=== PATIENT | female | born 1940 | race Caucasian/White ===

== ENCOUNTER → 2017-03-31 | Outpatient (CLI) | payer OTHER ==
[~2017-03-31] MED LIST: CARDIZEM CD240 MG PO; CIPRO500 MG PO; COUMADIN 3 MG TA3 M1 PO; COUMADIN 5 MG TA5 M1 PO; HYDROCHLOROTHIA25 M2 PO; LANTUS100 UNIT/M SUBQ; LIPITOR10 MG PO; METFORMIN HCL500 MG PO; NEURONTIN250 MG/5 M PO; NORCO 5-325 TA1 EACH PO; NOVOLOG100 UNIT/1 SUBQ; PRINIVIL20 M1 PO; TRIAMCINOLONE A80 G2 TOP; TYLENOL325 MG PO
== END ==
LOC: M.WC 01:52
DX: E11.622 Type 2 diabetes mellitus with other skin ulcer (principal); L97.211 Non-pressure chronic ulcer of right calf limited to breakdown of skin; E11.51 Type 2 diabetes mellitus with diabetic peripheral angiopathy without gangrene; E11.40 Type 2 diabetes mellitus with diabetic neuropathy, unspecified; I89.0 Lymphedema, not elsewhere classified; I10 Essential (primary) hypertension; I48.91 Unspecified atrial fibrillation; E78.00 Pure hypercholesterolemia, unspecified

== ENCOUNTER → 2017-05-05 | Outpatient (CLI) | payer OTHER | LOC: M.WC 09:53 | DX: E11.622 Type 2 diabetes mellitus with other skin ulcer (principal); L97.211 Non-pressure chronic ulcer of right calf limited to breakdown of skin; E11.40 Type 2 diabetes mellitus with diabetic neuropathy, unspecified; E11.51 Type 2 diabetes mellitus with diabetic peripheral angiopathy without gangrene; I10 Essential (primary) hypertension; I48.91 Unspecified atrial fibrillation; I89.0 Lymphedema, not elsewhere classified; E78.00 Pure hypercholesterolemia, unspecified; E66.9 Obesity, unspecified; Z68.43 Body mass index [BMI] 50.0-59.9, adult ==

== ENCOUNTER → 2017-06-02 | Outpatient (CLI) | payer OTHER | LOC: M.WC 02:54 | DX: E11.622 Type 2 diabetes mellitus with other skin ulcer (principal); L97.211 Non-pressure chronic ulcer of right calf limited to breakdown of skin; I89.0 Lymphedema, not elsewhere classified; I48.91 Unspecified atrial fibrillation; E78.00 Pure hypercholesterolemia, unspecified; I10 Essential (primary) hypertension; E11.51 Type 2 diabetes mellitus with diabetic peripheral angiopathy without gangrene; E11.40 Type 2 diabetes mellitus with diabetic neuropathy, unspecified; E66.9 Obesity, unspecified; Z68.43 Body mass index [BMI] 50.0-59.9, adult ==

== ENCOUNTER 2018-05-19 11:25 | Inpatient (IN) | payer OTHER, MEDICAID ==
[~2018-05-19] VITALS: Ht 165.1 cm; Wt 113.4 kg
[2018-05-19 11:29] VITALS: BP 177/81
[2018-05-19] MEDS ORDERED: ELIQUIS5 MG PO (12:05)
[2018-05-19] MEDS ORDERED: HUMALOG100 UNIT/1 SUBQ (12:07)
[2018-05-19] MEDS ORDERED: LISINOPRIL40 MG PO (12:08)
[2018-05-19] MEDS ORDERED: VIMPAT200 MG PO (12:08)
[2018-05-19 12:09] LABS: ABSOLUTE BASOPHILS 0.1 thou/uL (0.0-0.2); ABSOLUTE EOSINOPHILS 0.2 thou/uL (0.0-0.7); ABSOLUTE LYMPHOCYTES 1.6 thou/uL (0.8-5.3); ABSOLUTE MONOCYTES 0.6 thou/uL (0.0-1.2); ABSOLUTE NEUTROPHILS 5.8 thou/uL (1.6-8.1); BASOPHILS 0.8 %; HEMATOCRIT 42.3 % (37.0-47.0); HEMOGLOBIN 13.9 gm/dL (12.0-15.0); LYMPHOCYTES 19.4 %; MCH 28.3 pg (26.0-34.0); MCHC 32.9 g/dL (28.0-37.0); MCV 86.2 fL (80.0-100.0); MONOCYTES 7.1 %; MPV 7.8 fl. (7.2-11.1); NUCLEATED RBCS 0 /100WBC; PLATELET COUNT* 251 thou/uL (150-400); POLYS 70.7 %; RBC 4.91 mil/uL (4.20-5.00); RDW-CV 16.3 % (10.5-14.5); WBC 8.2 thou/uL (4.0-11.0)
[2018-05-19] MEDS ORDERED: COREG6.25 MG PO (12:09)
[2018-05-19] MEDS ORDERED: COLACE100 MG PO (12:12)
[2018-05-19] MEDS ORDERED: PEPCID20 MG PO (12:13)
[2018-05-19] MEDS ORDERED: KEPPRA1000 MG PO (12:13)
[2018-05-19] MEDS ORDERED: MIRALAX17 GM PO (12:13)
[2018-05-19] MEDS ORDERED: BISACODYL SUPP10 MG RECTAL (12:14)
[2018-05-19] MEDS ORDERED: MILK OF MA400 MG/5 M PO (12:14)
[2018-05-19 12:19] LABS: APTT 31.6 Seconds (25.0-31.3); INR 1.1; PROTIME 11.4 Seconds (9.20-11.50)
[2018-05-19 12:26] LABS: ANION GAP 7 mmol/L (7-16); BUN 24 mg/dL (7-18); CALCIUM 9.3 mg/dL (8.5-10.1); CHLORIDE 104 mmol/L (98-107); CO2 28 mmol/L (21-32); CREATININE 1.2 mg/dL (0.6-1.3); GLUCOSE 120 mg/dL (70-99); POTASSIUM 4.3 mmol/L (3.5-5.1); SODIUM 139 mmol/L (136-145); TROPONIN-I LEVEL <0.06 ng/mL (<0.06)
[2018-05-19 12:31] LABS: ALBUMIN 2.9 g/dL (3.4-5.0); ALKALINE PHOSPHATASE 119 U/L (46-116); NT-PRO BRAIN NAT PEPTIDE 640 pg/mL (<300); SGOT 29 U/L (15-37); SGPT 25 U/L (30-65); TOTAL BILIRUBIN 0.5 mg/dL (<0.1-1.0)
[2018-05-19 12:41] LABS: URINE BILIRUBIN NEGATIVE (Negative); URINE BLOOD 1+ (Negative); URINE CLARITY CLEAR; URINE COLOR YELLOW; URINE GLUCOSE-RANDOM NEGATIVE (Negative); URINE KETONES TRACE (Negative); URINE PROTEIN 1+ (Negative); URINE SPECIFIC GRAVITY >= 1.030 (1.005-1.030); URINE UROBILINOGEN 0.2 E.U./dl (0.2-1.0)
[2018-05-19 12:42] LABS: URINE LEUKOCYTES-REFLEX 2+ (Negative); URINE NITRITE-REFLEX POSITIVE (Negative)
[2018-05-19 12:52] LABS: BACTERIA-REFLEX >30 Many /HPF (None Seen); CASTS None Seen /LPF (None Seen); CRYSTALS None Seen /LPF (None Seen); MUCUS 4-6 Moderate strn/LPF (None Seen); SQUAMOUS 0-3 Few /LPF (0-3); URINE RBC 3-10 Few /HPF (0-2); URINE WBC-REFLEX >25 Many /HPF (0-5)
[2018-05-19 14:39] LABS: PCO2 47.4 mmHg (35.0-45.0); pH 7.313 (7.340-7.450)
[2018-05-19 14:42] VITALS: BP 137/53
[2018-05-19 14:42] LABS: PO2 145.6 mmHg (75.0-100.0)
[2018-05-19 15:07] VITALS: BP 161/72
--- NOTE | 2018-05-19 15:58 | NUR ---
PT ADMITTED AROUND 1430 PT IS LETARGIC SLEEPING MOANS WHEN MOVED PT UNAROUSABLE WHEN CALL NAME OR TALK TO PT, PT IS NON AMBULATORY PT HOB ELEVATED FOR ASPIRATION PRECAUTIONS PT HAS SEIZURE PRECAUTIONS IN PLACE D/T PT HISTORY, SPOKE WITH NURSE AT [facility] NURSE STATES PT BASELINE IS ALERT AND ORIENTED X 2 PT IS ALERT TO SELF COULD STATE DATE PT SLEPT ALL WEEKEND WAS ABLE TO WAKE UP WHEN NAME WAS SAID, THIS NURSE PAGED PHYSICIAN AWAITING CALL BACK OR NEW ORDERS, PT IS SR ON THE MONITOR, PT MEDICATIONS UPDATED, WILL CONTINUE TO MONITOR
--- NOTE | 2018-05-19 16:44 | EKG ---
[place] [address] ELECTROCARDIOGRAM REPORT Name: PAULETTENEDTHERESAALVARO JOHNSON Room: [address] ADM IN M.R.#: [id number] Admission: 05/19/18 Attend Phys: Dhiraj Richardson MD Discharge: Date of : 42 Report #: [id number] THIS REPORT FOR: //name// [facility] Test Date: 2018-05-19 Test Time: 11:46:04 Pat Name: THERESA CALDWELL Department: Room: [facility] Gender: F Labor Relations Manager: Rebel Michael : 1940 Requested By: Bebeto Rodriguez Order Number: [id number] MD: Tremayne Carter Measurements Intervals Marine Rate: 61 P: WV: QRS: -49 QRSD: 99 T: 57 QT: 436 QTc: 440 Interpretive Statements Atrial fibrillation Left anterior fascicular block Abnormal R-wave progression, late transition Compared to ECG 01/13/2017 16:05:24 Left anterior fascicular block now present Sinus rhythm no longer present Possible ischemia no longer present Electronically Signed On 05-19-2018 16:44:32 HYPERION ANALYST by Tremayne Carter [email or web address] <ELECTRONICALLY SIGNED> By: Tremayne Carter MD, [facility] 05/19/18 1644 1146 1146 Tremayne Carter MD, [facility] /EPI
[2018-05-19 20:00] VITALS: BP 148/59
[2018-05-20] VITALS: BP 121/28
[2018-05-20 00:05] VITALS: BP 140/45
[2018-05-20 04:00] VITALS: BP 132/54
[2018-05-20 04:50] LABS: HEMATOCRIT 36.6 % (37.0-47.0); MCH 28.1 pg (26.0-34.0); MCHC 32.6 g/dL (28.0-37.0); MCV 86.4 fL (80.0-100.0); MPV 7.7 fl. (7.2-11.1); RBC 4.23 mil/uL (4.20-5.00); RDW-CV 16.2 % (10.5-14.5)
[2018-05-20 05:01] LABS: HEMOGLOBIN 11.9 gm/dL (12.0-15.0)
[2018-05-20 05:03] LABS: ALBUMIN 2.3 g/dL (3.4-5.0); CALCIUM 8.7 mg/dL (8.5-10.1); CREATININE 1.1 mg/dL (0.6-1.3); MAGNESIUM 1.7 mg/dL (1.8-2.4); POTASSIUM 3.8 mmol/L (3.5-5.1); TOTAL BILIRUBIN 0.4 mg/dL (<0.1-1.0); TOTAL PROTEIN 7.2 g/dL (6.4-8.2)
--- NOTE | 2018-05-20 05:34 | NUR ---
PATIENT WAS LETARGIC AND DIFFICULT TO AROUSE, NOT ANSWER QUESTIONS AT START OF SHIFT. PATIENT BECAME EASIER TO AROUSE SHIFT PROGRESSED. BILATERAL BUTTOCK WOUNDS WHERE CLEANED WITH WOUND CLEANSERS AND SALINE. WOUNDS WAS THEN PAT DRY AND BOARDER FOAM WAS PLACED. FALL PRECAUTIONS IN PLACE, BED ALARM ON, CALL LIGHT WITHIN REACH, HOURLY ROUNDING BOSERVED.
[2018-05-20 06:24] LABS: BE 1.5 mmol/L (-2 to +3); PO2 72.6 mmHg (75.0-100.0); pH 7.353 (7.340-7.450)
[2018-05-20 06:26] LABS: PCO2 51.3 mmHg (35.0-45.0)
[2018-05-20 08:00] VITALS: BP 168/90
--- NOTE | 2018-05-20 12:25 | NUR ---
assumed pt care report received from nurse. pt is aox2 afib rate controlled on secured entrance monitor. on RA and saturation is 94%. accucheck 91. no insulin given. no complaint of pain. zarate in place. pt out of bed to chair with PT. now eating lunch. poor appetite. Nurse encourages pt to eat. PT/OT? wound care consulted. wound dressing intact. will change as needed later today. manager assisted living saw pt in room. pt compliant with medication administration. boots on. and elevated lower extremities. will continue to monitor pt.
--- NOTE | 2018-05-20 15:28 | NUR ---
Pt asleep when CM went to assess, will f/u later
[2018-05-20 16:00] VITALS: BP 111/60
--- NOTE | 2018-05-20 17:59 | NUR ---
PT INCONTENENT OF BOWEL. BED CHANGES. PERICARE GIVEN. BARRIER CREAM APPLIED ON BUTTOCKS. NEW DRESSING APPLIED ON WOUND IN BUTTOCKS. FLOEY IN PLACE. PT ATE 1/3 OF DINNER NO INSULIN GIVEN BLOOD SUGAR IS 110. ROCEPHIN GIVNE ORDERED. WILL CONTINUE TO MONITOR
[2018-05-20 20:00] VITALS: BP 142/49
[2018-05-21] VITALS: BP 131/62
[2018-05-21 04:00] VITALS: BP 144/66
[2018-05-21 04:27] LABS: HEMATOCRIT 35.8 % (37.0-47.0); HEMOGLOBIN 11.4 gm/dL (12.0-15.0); MCH 27.6 pg (26.0-34.0); MCHC 31.8 g/dL (28.0-37.0); MCV 86.6 fL (80.0-100.0); MPV 7.7 fl. (7.2-11.1); RBC 4.13 mil/uL (4.20-5.00); RDW-CV 16.5 % (10.5-14.5); WBC 5.9 thou/uL (4.0-11.0)
[2018-05-21 04:35] LABS: CALCIUM 8.8 mg/dL (8.5-10.1); MAGNESIUM 1.8 mg/dL (1.8-2.4); POTASSIUM 3.7 mmol/L (3.5-5.1)
--- NOTE | 2018-05-21 05:19 | NUR ---
PATIENT RESTED IN BED. WOUNDS ON BUTTOCK CLEANED WITH WOUND CLEASER AND SALINE, WOUNDS WERE PAT DRY. BOARDER FOAM DRESSING WAS THEN PLACED ON BILATERAL BUTTOCKS. PATIENT IS DIFFICULT TO AROSE. CALL TO DOCTOR MCT REGARDING BIPAP SETTINGS, SEE ORDERS.
[2018-05-21 08:00] VITALS: BP 151/68
[2018-05-21 12:00] VITALS: BP 116/80
--- NOTE | 2018-05-21 13:37 | CON ---
[address] [address] CONSULTATION Name: THERESA CALDWELL Room: [address] ADM IN M.R.#: [id number] Admission: 05/19/18 Attend Phys: Dhiraj Richardson MD Discharge: Date of : 42 Report #: [id number] THIS REPORT FOR: //name// CC: Dhiraj Shoemaker MD DATE OF SERVICE: 05/20/2018 ATTENDING PHYSICIAN: Dhiraj Richardson MD. PRIMARY CARE PHYSICIAN: Martin Shoemaker MD. LOCATION: The patient is located in room 203. INDICATION FOR CONSULTATION: Mild CO2 retention, altered mental status. CLINICAL SUMMARY: The patient is a 78-year-old female, prior nonsmoker with multiple medical problems including dementia, atrial fibrillation. She is admitted to [facility] for urinary tract infection and urosepsis. The patient presented to the Emergency Department yesterday afternoon after being 24-48 hours less responsive at the facility. She had foul smelling urine and she also had some necrotic pressure ulcers on both buttocks. She also had some crampy abdominal pain without diarrhea. She had some mild vomiting. She was just on 2 liters and her pO2 was 140s, her pCO2 was 50 and her pH was balanced. She has mild renal insufficiency. Urine culture was obtained. She was started on antibiotics. She states she is more alert today, question whether she had a couple of extra pain pills or sleeping pills yesterday afternoon or evening. PAST MEDICAL HISTORY: Frequent urinary tract infections, urosepsis, type 2 diabetes mellitus with diabetic ulcer right lower leg, pressure necrosis ulcers of both buttocks, nonhealing ulcers of the lower extremities, metabolic encephalopathy and renal insufficiency. ALLERGIES: SHE HAS ALLERGIES OR INTOLERANCES TO PENICILLIN AND SULFA, BOTH OF WHICH GIVE HER NAUSEA. PAST MEDICAL ILLNESSES: Include again dementia, atrial fibrillation, chronic urinary tract infections, possible obstructive sleep apnea or hypoventilation, mild CO2 retention. OTHER MEDICATIONS: Include lisinopril 20 mg daily, atorvastatin 10 mg daily, sliding scale insulin, Apixaban 5 mg b.i.d. for atrial fibrillation, Vimpat 200 mg b.i.d. previously for seizures, carvedilol 6.25 mg b.i.d., famotidine 20 mg p.o. b.i.d. and MiraLax p.r.n. She is also on Keppra 1000 [place] [address] CONSULTATION Name: THERESA CALDWELL Room: [address] IN [facility].#: [id number] Admission: 05/19/18 Attend Phys: Dhiraj Richardson MD Discharge: Date of : 41 Report #: [id number] cannot find an antibiotic ordered at this time. FAMILY HISTORY: Negative for premature cardiopulmonary disease. SOCIAL HISTORY: The patient states she is . She is a former smoker. She quit more 10-15 years ago. Again, history is somewhat sketchy and back and forth at times. Also, questionable history of lupus in the past. Denies any alcohol or illicit drug use. REVIEW OF SYSTEMS: A 14-point review of systems was attempted and appeared to be negative except for pertinent positives. PHYSICAL EXAMINATION: GENERAL: This is a 78-year-old female who is oriented to person, not to place or time when I asked her. She is on room air. Occasionally, she picks at her dressing gown. VITAL SIGNS: Blood pressure is 168/90, heart rate is 84 and slightly irregular, respirations are 16 and she is afebrile at this time. Temperature is 36.6. She is 5 feet 3 inches tall, weight is 117 kilograms or 250 pounds, BMI is 43. HEENT: Unremarkable. Mucous membranes are slightly dry. Pharynx is crowded. NECK: Supple without nodes. CHEST: Shows diminished breath sounds, otherwise clear. CARDIOVASCULAR: Irregular rate and rhythm with ventricular response in the 80s. No S3 is noted. ABDOMEN: Soft, obese without masses or megaly. EXTREMITIES: She has chronic venous stasis changes and Unna boots on. Nonhealing ulcers of both lower extremities. LABORATORY DATA: From 05/20/2018 today; hemoglobin is 12, white count is 8000, platelet counts 202,000. Sodium is 143, potassium is 3.8, chloride is 109, BUN is 22, creatinine is 1.0, GFR is 48, glucose is 122, magnesium is 1.7. Albumin is 2.3. ABG initially yesterday afternoon on 2 liters in the Emergency Room showed pO2 of 145, pH of 7.31, pCO2 is 47 with bicarb of 23. This morning at 6:00, not sure whether she was awake or sedated, pO2 was 73, pH 7.35, pCO2 is 51 with bicarbonate of 28. Her A-a gradient is probably less than 10. Chest x-ray basically is within normal limits without any infiltrates or pneumonia or CHF. IMPRESSION: 1. Mild acute hypercarbic respiratory failure, acute respiratory failure, probably multifactorial. 2. Probable obstructive sleep apnea. 3. Dementia. 4. Atrial fibrillation. 5. Possible urinary tract infection. PLAN: We will basically just hold sedation, see that she needs some [facility] [address] [place] [address] CONSULTATION Name: THERESA CALDWELL Room: [address] IN ..#: [id number] Admission: 05/19/18 Attend Phys: Dhiraj Richardson MD Discharge: Date of : 42 Report #: [id number] antibiotics, continue on her anti-seizure medications. We could recheck her blood gas at some point in time to make sure CO2 is stable. Right now, she is a full code blue and need to talk about code and ventilatory status. Would avoid sleeping pills in this patient. I think she would cooperate for sleep study in the future, might be a consideration at some point in time. Thanks again for allowing us to participate in this lady's care. We will follow up along with you while she is in the hospital at this time. <ELECTRONICALLY SIGNED> By: Dejuan Yung MD 05/21/18 1337 1254 [id number] Yung MD /nt
--- NOTE | 2018-05-21 14:32 | NUR ---
WOUND CARE NOTE: CONSULT RECEIVED FOR BUTTOCKS WOUNDS. PATIENT'S FAMILY MEMBER IN ROOM, STATES SHE HAS BEEN FIGHTING THESE WOUNDS FOR APPROXIMATELY 1 MONTH. RIGHT BUTTOCK: UNSTAGEABLE PRESSURE ULCER MEASURING 1.7X2.5X0.2. MOIST, YELLOW WOUND BED. [place]-WOUND REDDENED, BLANCHABLE. CLEANSED WITH WOUND CLEANSER, PATTED DRY. APPLIED AQUACEL AG TO WOUND BED AND COVERED WITH EXUDERM THEN TEGADERM. LEFT BUTTOCK: UNSTAGEABLE PRESSURE ULCER MEASURING 1.5X2X0.2. MOIST, YELLOW ADHERENT SLOUGH TISSUE TO 90% OF WOUND BED. 10% PINK, MOIST NON-GRANULAR. CLEANSED WITH WOUND CLEANSER, PATTED DRY. APPLIED AQUACEL AG TO WOUND BED AND COVERED WITH EXUDERM THEN TEGADERM. PATIENT TOLERATED DRESSING CHANGE WELL. EDUCATED FAMILY MEMBER ON FINDINGS, COMMUNICATED UNDERSTANDING. EDUCATED FAMILY MEMBER ON DRESSING SELECTION AND TURNING TO OFFLOAD PRESSURE, COMMUNICATED UNDERSTANDING. RECOMMEND TURN Q2 HOURS-KEEP OFF WOUNDS WAFFLE CUSHION WHEN IN CHAIR IBRAHIMA MATTRESS ENCOURAGE GOOD NUTRTION/HYDRATION LIMIT HOB <30 DEGREES FOLLOW UP IN WOUND CENTER UPON DISCHARGE
[2018-05-21 15:46] VITALS: BP 134/68
--- NOTE | 2018-05-21 15:51 | NUR ---
ASSUMED CARE OF PATIENT THIS AM AT 0730. PATIENT IS DROWSY SLEEPY MOST OF THE DAY. TELE SHOWS A FIB. PATIENT'S APPETITE IS POOR. GIVEN ENSURE OFF AND ON TODAY. PATIENT UP IN THE CHAIR WITH MAYITO LIFT THIS AFTERNOON WITH PTDaphne SALAS REMAINS TO DD. WILL CONTINUE TO MONITOR MENTAL STATUS. NO FALLS OR INJURY.
--- NOTE | 2018-05-21 15:52 | NUR ---
Spoke with Pt's via phone. Pt admitted to [facility] a little over a month ago with a stroke, Pt was there for 29 days. At tx, Pt discharged to [facility], per , Pt had been there for 5.5 days prior to admitting to this hospital. Prior, Pt resided at home with her and was fairly independent, assisted with some ADLS and completed all IADLs. Pt has a walker, quad cane, wc and lift chair at home. Hx of [facility]. Hx of SNF at [facility]. 's goal is for Pt to return home at dc, does not want Pt to return to [facility]. CM discussed inhome caregivers through pt's Medicaid, discussed process to get services started. Plan dc home with HH and plan to set up [facility], if Pt qualifies. Following.
[2018-05-21 20:00] VITALS: BP 153/63
[2018-05-22] VITALS: BP 113/74
--- NOTE | 2018-05-22 03:48 | NUR ---
RECIEVED REPORT AND ASSUMED CARE AT 1900. TOOL CHASER IN PLACE. SYSTOLIC BP ELEVATED, OTHER THAN THAT VITAL SIGNS STABLE. PT DENIES ANY PAIN AT THIS TIME AND DOESN'T APPEAR TO HAVE PAIN AT THIS TIME. ASSESSMENT COMPLETED DISCUSSED PLAN OF CARE. BED LOCKED, AND CALL LIGHT WITHIN REACH. FALL PRECAUTIONS IN PLACE. HOURLY ROUNDING DONE AND ALL NEEDS MET. NURSING WILL CONTINUE TO MONITOR.
[2018-05-22 04:00] VITALS: BP 140/48
[2018-05-22 05:23] LABS: ABSOLUTE BASOPHILS 0.1 thou/uL (0.0-0.2); ABSOLUTE EOSINOPHILS 0.3 thou/uL (0.0-0.7); ABSOLUTE LYMPHOCYTES 1.4 thou/uL (0.8-5.3); ABSOLUTE MONOCYTES 0.9 thou/uL (0.0-1.2); ABSOLUTE NEUTROPHILS 3.7 thou/uL (1.6-8.1); BASOPHILS 0.8 %; HEMATOCRIT 36.7 % (37.0-47.0); HEMOGLOBIN 11.6 gm/dL (12.0-15.0); LYMPHOCYTES 21.5 %; MCH 27.5 pg (26.0-34.0); MCHC 31.7 g/dL (28.0-37.0); MCV 86.7 fL (80.0-100.0); MONOCYTES 14.7 %; MPV 8.4 fl. (7.2-11.1); NUCLEATED RBCS 0 /100WBC; PLATELET COUNT* 146 thou/uL (150-400); RBC 4.23 mil/uL (4.20-5.00); RDW-CV 16.2 % (10.5-14.5); WBC 6.3 thou/uL (4.0-11.0)
[2018-05-22 05:57] LABS: ALBUMIN 2.2 g/dL (3.4-5.0); CALCIUM 8.7 mg/dL (8.5-10.1); CREATININE 1.1 mg/dL (0.6-1.3); POTASSIUM 3.9 mmol/L (3.5-5.1); TOTAL BILIRUBIN 0.2 mg/dL (<0.1-1.0)
[2018-05-22 08:00] VITALS: BP 146/44
[2018-05-22 11:31] VITALS: BP 158/67
[2018-05-22 15:40] VITALS: BP 129/62
--- NOTE | 2018-05-22 17:13 | NUR ---
PT RESTING IN BED THROUGHOUT SHIFT. REPOSITIONED FREQUENTLY. PLEASANTLY CONFUSED. SALAS CATH DRAINING CLEAR YELLOW URINE. INCONTINENT OF STOOL. TOLERATING PO WELL. GOOD APPETITE. AT BS AND UPDATED ON PLAN OF CARE
[2018-05-22 20:00] VITALS: BP 144/67
[2018-05-23] VITALS: BP 141/58
--- NOTE | 2018-05-23 03:30 | NUR ---
RECIEVED REPORT AND ASSUMED CARE AT 1900. PROCEDURE WRITER IN PLACE. VITAL SIGNS ARE STABLE. PT DOESN'T APPEAR TO BE IN ANY PAIN NOR COMPLAINS OF PAIN AT THIS TIME. ASSESSMENT COMPLETED AND REVIEWED PLAN OF CARE. BED LOCKED, ALARM ON AND CALL LIGHT WITHING REACH. FALL PRECAUTIONS IN PLACE. PT ON BIPAP AT HS AND RA DURING THE DAY. HOURLY ROUNDING DONE AND ALL NEEDS MET. NURSING WILL CONTINUE TO MONITOR.
[2018-05-23 04:00] VITALS: BP 127/64
[2018-05-23 08:00] VITALS: BP 133/87
[2018-05-23 11:30] VITALS: BP 151/46
[2018-05-23 15:26] VITALS: BP 141/64
--- NOTE | 2018-05-23 17:15 | NUR ---
PT RESTING IN BED THROUGHOUT SHIFT. REPOSITIONED FREQUENTLY. PT CONFUSED. AT BS AND UPDATED ON PLAN OF CARE. TOLERATING PO WELL.
[2018-05-23 20:00] VITALS: BP 161/80
[2018-05-24] VITALS: BP 146/65
--- NOTE | 2018-05-24 02:48 | NUR ---
RECIEVED REPORT AND ASSUMED CARE AT 1900. PUBLICITY CONSULTANT IN PLACE AT BEGINING OF SHIFT AND PT WAS PULLING AT IT AND PULLED IT OFF IN THE MIDDLE OF MY SHIFT AND WOULD NOT LET STAFF PUT BACK ON. AFTER FEW HOURS STAFF WAS ABLE TO PUT PUBLICITY CONSULTANT BACK ON. NOTIFIED DR ABOUT PTS AGITATION, PT BEING PARANOID AND NOT TRUSTING STAFF, AND ABOUT SEEING PEOPLE AND TALKING TO PEOPLE THAT WERE NOT IN ROOM. PT PULLED OUT IV ON DAY SHIFT AND HAS NOT LET ANYONE PUT ANOTHER IV BACK IN. PT REFUSED ALL NIGHT TIME MEDS AND I WAS TRYING TO GIVE HER AN ENSURE AND SHE SQUEEZED HARD ENOUGH TO POP A HOLE IN IT AND ENSURE WENT EVERYWHERE. SHE HAS BE NONCOMPLAINT MOST OF THE NIGHT. I ALSO NOTIFIED DR HAND TUFTER ABOUT THAT. SYSTOLIC BP ELEVATED, OTHER THAN THAT VITAL SIGNS STABLE. PT IS UP WITH MAYITO LIFT TO THE CHAIR AND BED. ASSESSMENT COMPLETED. BED LOCKED, ALARM ON AND CALL LIGHT WITHIN REACH. FALL PRECAUTIONS IN PLACE. HOURLY ROUNDING DONE AND ALL NEEDS MET. NURSING WILL CONTINUE TO MONITOR.
[2018-05-24 05:02] LABS: ABSOLUTE EOSINOPHILS 0.4 thou/uL (0.0-0.7); ABSOLUTE LYMPHOCYTES 1.4 thou/uL (0.8-5.3); ABSOLUTE MONOCYTES 0.7 thou/uL (0.0-1.2); ABSOLUTE NEUTROPHILS 2.7 thou/uL (1.6-8.1); BASOPHILS 0.7 %; EOSINOPHILS 7.5 %; HEMATOCRIT 37.9 % (37.0-47.0); HEMOGLOBIN 12.4 gm/dL (12.0-15.0); LYMPHOCYTES 26.7 %; MCH 27.9 pg (26.0-34.0); MCHC 32.6 g/dL (28.0-37.0); MCV 85.6 fL (80.0-100.0); MONOCYTES 13.4 %; MPV 8.3 fl. (7.2-11.1); NUCLEATED RBCS 0 /100WBC; PLATELET COUNT* 174 thou/uL (150-400); POLYS 51.7 %; RBC 4.42 mil/uL (4.20-5.00); RDW-CV 16.4 % (10.5-14.5); WBC 5.3 thou/uL (4.0-11.0)
[2018-05-24 05:12] LABS: CALCIUM 8.7 mg/dL (8.5-10.1); POTASSIUM 3.5 mmol/L (3.5-5.1)
--- NOTE | 2018-05-24 06:57 | NUR ---
PT LET STAFF PUT HEART MONITOR BACK ON DURING THE NIGHT. BUT THEN TOOK IT OFF AGAIN ALONG WITH HER GOWN. STAFF CHANGED PTS BEDDING AND REDRESSED HER AND PUT HEART MONITOR ON BACK SIDE. PTS A LITTLE LOW SO STAFF GAVE PT ENSURE TO HELP BRING BS UP. PT NOW RESTING IN BED.
[2018-05-24 08:32] VITALS: BP 159/96
--- NOTE | 2018-05-24 11:28 | NUR ---
PT A/O TO SELF ONLY. PT VERY PARANOID THIS AM, SPEAKING ABOUT PEOPLE/EVENTS THAT ARE NOT AROUND/HAPPENING. PT IS NOT EASILY REORIENTED.-MD AWARE. DENIES CP. SOA. INCONT OF BM THIS AM. BILAT BUTTOCK DRESSING INTACT. Q2 TURN, SPECIALTY MATTRESS. SALAS TO DD WITH ADEQUATE UO- DC PER VERBAL ORDER. PT DOES NOT HAVE PIV- MD AWARE AND OK TO CONTINUE WITHOUT ACCESS AT THIS TIME. EDUCATED ON SAFETY AND PLAN OF CARE. BED ALARM ON, CALL LIGHT IN REACH. PLEASE SEE ASSESSMENT FOR ADDITIONAL INFORMATION. WILL CONTINUE TO MONITOR.
[2018-05-24 12:00] VITALS: BP 156/59
--- NOTE | 2018-05-24 12:46 | NUR ---
Nutrition: Pt assessed for high BMI. Admitted with urosepsis. H/o DM, OBE, HTN. Physician indicated moderate PCM - defer DX. Alb 2.2, prealb 14.6. CHO controlled diet. BG 67-140. Takes insulin, carvedilol. Wt: 255#. Consider Mild risk at this time.
--- NOTE | 2018-05-24 14:56 | NUR ---
WOUND NURSE: PATIENT SEEN TO REVISIT BUTTOCK WOUNDS: RIGHT SACRUM: 1.5 X 2.5 X 0.2 CM; PINK GRANULATION TISSUE IN THE WOUND BED, MODERATE AMOUNT OF SEROUS DRAINAGE. LEFT SACRUM: 1.3 X 2.5 CM WITH UNSTABLE BLACKENED ESCHAR COVERING THE WOUND, MODERATE AMOUNT OF SEROUSANGUINOUS DRAINAGE NOTED. WOUNDS WERE CLEANSED WITH SOAP AND WATER, RINSED WITH WATER, THEN PATTED DRY. APPLIED SKIN PREP TO INTACT PERIWOUND TISSUE, APPLIED AQAUCEL AG UNDER EXUDERM TO EACH WOUND BED, THEN SECURED IN PLACE. INTACT DRY SCAB ON RIGHT GREAT TOE: 1.2 X 1.5CM; RIGHT LATERAL DISTAL LE.0 X1.5 CM. THESE WERE SWABBED WITH BETADINE SWAB, LET DRY, THEN REAPPLIED HEELMEDIX BOOT.
[2018-05-24 16:00] VITALS: BP 129/55
[2018-05-24 20:00] VITALS: BP 138/65
[2018-05-25] VITALS: BP 106/48
--- NOTE | 2018-05-25 01:19 | NUR ---
PT ALERT, CONFUSED, COOPERATIVE. TURNING Q 2 HRS. INCONTENENT OF URINE. DENIES PAIN. TELEMETRY SHOWS AFIB. WOUNDS ON ROSARIO BUTTOCKS WITH DRSG INTACT.
[2018-05-25 04:00] VITALS: BP 132/68
[2018-05-25 09:30] VITALS: BP 139/70
--- NOTE | 2018-05-25 11:04 | NUR ---
CM spoke with Pt's in room, is adament that he wants to take Pt home at nd. CM discussed option of utilizing a different skilled facility, instead of [facility], continued to say no. CM asked to contact [facility] in home care, to complete an over the phone assessment to determine if Pt will qualify for in home care providers, through her [place] [facility], to call this afternoon. also wants to use [facility] for nursing, PT/OT, CM to ask [facility] to review Pt's chart to determine if they will be able to accept Pt at nd. Per , if Pt needs a dev lift, they do not currently have one at home, CM will obtain an order if dev is needed. stated that Pt normally sleeps in her lift chair, and anticipates that she will do the same at nd. Following.
[2018-05-25 11:13] VITALS: BP 152/71
[2018-05-25 15:06] LABS: COMPLEMENT-C4 42 mg/dL (14-44)
[2018-05-25 15:48] VITALS: BP 132/59
--- NOTE | 2018-05-25 16:49 | NUR ---
ASSUMED PT CARE AT 0700 PT SHOWS NO SIGNS OF PAIN, PT SHOWS NO SIGNS OF SOA ON RA, PT IS ON AIR MATTRESS REFUSED Q 2 TURNS, PT TRANSFERS WITH MAYITO LIFT, PT IS AFIB ON THE MONITOR, OBTAINED ORDERS FOR DR OLSEN WITH SURGERY TO PERFORM BEDSIDE RIGHT BUTTOCK DEBRIDEMENT 05-26-18 AROUND 7401-9839 OBTAINED ORDERS FOR LIDOCAINE AND SILVER NITRATE PHYSICIAN ORDER TO DRESS BOTH BUTTOCK USING SAME ORDERS OF AQUALCEL EXODERM AND TAGADERM PT TO GIVE CONSENT PT IS ALERT AND ORIENTED X 2 PT IS CONFUSED, PT IS PROGRESSING TOWARDS GOALS WILL CONTINUE TO MONITOR
[2018-05-25 20:00] VITALS: BP 153/43
[2018-05-26] VITALS: BP 149/53
--- NOTE | 2018-05-26 00:11 | NUR ---
PT ALERT, CONFUSED, HALLUCINATING, UNCOOPERATIVE. TELEMETRY SHOWS AFIB. BEDREST Q 2 HR TURN. INCONT OF URINE. DENIES PAIN.
[2018-05-26 04:00] VITALS: BP 144/54
--- NOTE | 2018-05-26 05:08 | NUR ---
PT REFUSED TO TAKE ALL OF HER MEDICATIONS LAST NIGHT. HELD IN MOUTH UNTIL DISOLVED. SPIT DISOLVED PILLS OUT ON STAFF WHEN GIVEN WATER TO DRINK. UNABL TO TELL WHICH PILLS WERE SWALLOWED AND SPIT DISOLVED IN WATER.
[2018-05-26 09:00] VITALS: BP 126/50
[2018-05-26 11:26] VITALS: BP 158/76
--- NOTE | 2018-05-26 11:31 | NUR ---
updated CM that Pt does not have the right [place] [facility]DA to qualify for inhome care services. continues to plan for Pt to return home with his with [facility]. Initial referral sent to [facility], they are able to accept [place] at [place].
--- NOTE | 2018-05-26 11:35 | CON ---
[address] [address] CONSULTATION Name: THERESA CALDWELL Room: [address] IN M.R.#: [id number] Admission: 05/19/18 Attend Phys: Dhiraj Richardson MD Discharge: Date of : 42 Report #: [id number] THIS REPORT FOR: //name// CC: Dhiraj Shoemaker DATE OF SERVICE: 05/25/2018 INFECTIOUS DISEASE CONSULTATION ATTENDING PHYSICIAN: Stanford Díaz M.D. REASON FOR EVALUATION: Recent sepsis, now with complicated urinary tract infection, has been complicated by encephalopathy including apparently recent seizures as well as hallucinations. HISTORY OF PRESENT ILLNESS: Chart reviewed, patient examined. This is a 78-year-old woman with extensive medical history, underlying chronic obstructive pulmonary disease, has had multiple hospital stays, recently she was admitted through the Emergency Room on 05/19/2018 here with profound encephalopathy. Urinalysis was markedly abnormal, greater than 25 white cells and greater than 30 bacteria. Urine culture with growth of Escherichia coli that was generally susceptible. Initial treatment was utilized with ceftriaxone. She was switched to Ceftin. She continues to have fairly profound hallucinations. On review of her recent history, she was hospitalized with septic shock, spent close to a month in the hospital, ____ in the ICU, was on chronic ventilatory support. She was eventually weaned. She has been utilizing BiPAP while here until recently. Due to concerns of fact that she had some seizures that had been new onset, did undergo lumbar puncture, apparently shows some pleocytosis that was felt not to be secondary to any sort of inflammation and/or FRENCH COMBER infection. She generally has improved, although she is profoundly weak. She does have decubitus ulcers apparently related to the recent hospitalization, subsequent time spent at the rehab facility, which she was just prior to this admission. She denies any headache, stiff neck. On questioning she has some discomfort in her chest and does have a cough which is somewhat wet and significant abdominal-related complaints. ALLERGIES: PENICILLIN AND SULFA. CURRENT MEDICATIONS: Include cefuroxime, bisacodyl, docusate sodium, levetiracetam, famotidine, lacosamide, apixaban, insulin, atorvastatin, carvedilol, insulin, lisinopril, melatonin, montelukast. PAST MEDICAL HISTORY: History of hypertension, diabetes mellitus, atrial fibrillation, factor V Leiden, lupus anticoagulant, positive chronic anticoagulation, elevated cholesterol, venous [place] [address] CONSULTATION Name: THERESA CALDWELL Room: [address] IN [facility]#: [id number] Admission: 05/19/18 Attend Phys: Dhiraj Richardson MD Discharge: Date of : 42 Report #: [id number] dermatitis, history of diverticulosis, peripheral neuropathy, psoriasis, obesity. SOCIAL HISTORY: Former smoker. No ethanol or illicit drug use. FAMILY HISTORY: Noncontributory. REVIEW OF SYSTEMS: Ten-point review of systems otherwise unremarkable except as noted in the above history of present illness. PHYSICAL EXAMINATION: GENERAL: She appears chronically ill, undernourished. She is generally pleasant and cooperative. It is clear that she is hallucinating at times, seeing people in the room, things happening with the TV. Per family, this is something that happened previously post sepsis, it eventually cleared. VITAL SIGNS: Temperature 97.8, pulse 78, respirations 17, blood pressure 152/71. HEENT: Extraocular muscles intact. Normocephalic. NECK: Supple. LUNGS: Diminished breath sounds. Few scattered crackles. HEART: Distant, regular. I do not appreciate murmur. ABDOMEN: Obese, soft. There are no peritoneal signs. Nontender. GENITOURINARY AND RECTAL: Deferred. SKIN: Venous stasis dermatitis of the lower extremities with some swelling. LABORATORY DATA: Sed rate of 69. CRP of 53.7. Blood cultures sterile thus far. Most recent electrolytes: Sodium 141, potassium 3.5, chloride 102, bicarbonate is 34, anion gap of 5, BUN and creatinine 17 and 1.0, glucose of 67, calcium of 8.7, estimated GFR of 5.4. CBC: White count of 5.3, H and H 12.4 and 37.9, platelets of 174. Differential showed absolute lymphocyte count of 1400. Urine culture with Escherichia coli. Liver function tests were otherwise unremarkable. Albumin 2.2, total protein 7.0. ASSESSMENT AND PLAN: Complicated urinary tract infection, although it is pretty susceptible organism, although had a previous 1-2 months extensive illness with a prolonged ICU stay. I am not sure I can appreciate anything that would lead me to believe has an ongoing FRENCH COMBER infection at this point. We will discuss with Dr. Díaz. Dr. Ballard reviewed the records. Would consider repeat spinal tap if needed and evaluate resolution of pleocytosis. She seems unlikely to have arthropod exposure that may contribute to some systemic illness that may be more difficult to diagnose. Continue the Ceftin for now. Continue to reorient her, increase her strength, monitor expectantly, certainly [place] [address] CONSULTATION Name: THERESA CALDWELL Room: [facility] IN [facility]#: [id number] Admission: 05/19/18 Attend Phys: Dhiraj Richardson MD Discharge: Date of : 42 Report #: [id number] related infectious complications. Offload her decubitus ulcers, encourage nutritional intake. <ELECTRONICALLY SIGNED> By: Tee Villanuvea MD 05/26/18 1135 1130 [id number] Villanueva MD /nt
[2018-05-26 15:25] VITALS: BP 130/54
--- NOTE | 2018-05-26 16:23 | NUR ---
ASSUMED PT CARE AT 0700 PT IS ALERT AND ORIENTED X 1-2 PT IS CONFUSED PT HAS BEEN PLEASANT AND COOPERATIVE PT HAS NOT BEEN INAPPROPRIATE, PT WORKED [facility] OCCUPATIONAL THERAPY AND TRANSFERED TO CHAIR WITH ASSIST X 2 PT IS A FALL RISK BED ALARM IS ON, WOUND PHYSICIAN SAW PT AND DEBRIDE PT RIGHT BUTTOCK PT TOLERATED WELL. PT MORE LETHARGIC AND SLEEPING PT VITALS STABLE NO SIGNS OF DISTRESS NOTED, PT IS AFIB ON THE MONITOR, PT IS Q 2 TURNS, PT IS PROGRESSING TOWARDS GOALS, WILL CONTINUE TO MONITOR
[2018-05-26 20:00] VITALS: BP 154/74
[2018-05-27] VITALS: BP 144/52
[2018-05-27 03:30] VITALS: BP 125/47
--- NOTE | 2018-05-27 04:39 | NUR ---
ASSUMED PT CARE AT 1930. ASSESSMENT COMPLETED CHARTED. ABLE TO MAKE NEEDS KNOWN. NO C/O PAIN OR DISCOMFORT. PT TRIED TO GET OUT OF BED ONCE BECAUSE SHE HEARD SOMEONE YELL AND THOUGHT HER SON WAS AT THE DOOR. WAS EASILY REDIRECTED AND HAS BEEN RESTING IN BED EVER SINCE. NO SIGNIFICANT CHANGES THIS SHIFT. WILL CONTINUE TO MONITOR.
[2018-05-27 05:27] LABS: CALCIUM 8.6 mg/dL (8.5-10.1); CREATININE 1.1 mg/dL (0.6-1.3); MAGNESIUM 1.7 mg/dL (1.8-2.4); POTASSIUM 3.8 mmol/L (3.5-5.1)
[2018-05-27 08:30] VITALS: BP 149/63
[2018-05-27 10:08] LABS: ANTI-DNA SCREEN 1 IU/mL (0-9)
[2018-05-27 12:01] VITALS: BP 100/77
--- NOTE | 2018-05-27 13:52 | NUR ---
ASSUMED PT CARE AT 0700 PT IS ALERT AND ORIENTED X 2 PT HAS HALLUCINATIONS PT TALKING TO PERSON NOT IN THE ROOM PT IS MORE AWAKE AND ALERT PT IS CALLING OUT APPRORIATELY TO USE BEDPAN, PT SLEEPY WHEN PHYSICAL THERAPY EVAULTED PT, PT DENIES PAIN OR SOA ON RA, PT IS AFIB ON THE MONITOR, PT IS PROGRESSING TOWARDS GOALS WILL CONTINUE TO MONITOR
[2018-05-27 15:40] VITALS: BP 97/74
[2018-05-27 20:00] VITALS: BP 110/53
[2018-05-28] VITALS (7 sets, daily range): BP systolic 99–151; BP diastolic 53–80
--- NOTE | 2018-05-28 03:49 | NUR ---
PT ALERT CONFUSED. REFUSING TO DRINK WATER. PT DID TAKE PILLS WITH PUDDING THIS SHIFT. BED REST INCONT OF URINE. TURN Q 2 HRS. TELEMETRY SHOWS AFIB. DENIES PAIN. RESTING QUIETLY TONIGHT.
--- NOTE | 2018-05-28 11:00 | NUR ---
Plan continues to be to ca to home with [facility]. HH orders will need to be faxed to [facility] at ca [phone].
--- NOTE | 2018-05-28 16:28 | NUR ---
I have reviewed the documentation by CHEO GREENFIELD from TODAY to 05/28/18 and I concur with it. ADITYA ORTEGA
--- NOTE | 2018-05-28 18:56 | NUR ---
RECEIVED REPORT FROM HAILE GONZALEZ. ASSUMED CARE OF PT AROUND 0730. PT ALERT THIS AM, ORIENTED TO SELF ONLY, BUT FOLLOWED SIMPLE COMMANDS WITHOUT ISSUE. VSS. 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 AM ASSESSMENT AND VITALS COMPLETED CHARTED. PT HAS DENIED PAIN OR DISCOMFORT THIS SHIFT, AND HAS NOT APPEARED TO BE IN ANY PAIN/DISCOMFORT. PT HAS HAD POOR APPETITE - DID EAT ONE APPLESAUCE FOR DINNER. PT ABLE TO TAKE PILLS THIS SHIFT WITH WATER, NO ISSUES. DRESSING TO BOTTOM WOUDNS INTACT. PT TURNED IN BED Q2HRS FOR SKIN INTEGRITY. HEEL BOOTS ON. AT BEDSIDE EARLIER THIS SHIFT. PT INCONTINENT OF URINE; PT CLEANED NEEDED. PT VERY DROWSY SHIFT PROGRESSED AND NAPPED THIS AFTERNOON INTO EVENING. PT CURRENTLY RESTING IN BED. CALL LIGHT IS WITHIN REACH. FALL PRECAUTIONS ARE IN PLACE. HOURLY ROUNDING PERFORMED.
--- NOTE | 2018-05-29 03:58 | NUR ---
ASSUMED PT CARE AT 1930. ASSESSMENT COMPLETED CHARTED. UNABLE TO MAKE NEEDS KNOWN. TRIED CRAWLING OUT OF BED ONCE TODAY AND USED BSC, HAS SINCE BEEN RESTING IN BED. NO C/O PAIN OR DISCOMFORT. [id number] COMPLETED CHARTED. WILL CONTINUE TO MONITOR.
[2018-05-29 04:00] VITALS: BP 132/63
[2018-05-29 05:09] LABS: HEMATOCRIT 38.5 % (37.0-47.0); HEMOGLOBIN 12.4 gm/dL (12.0-15.0); MCH 27.6 pg (26.0-34.0); MCHC 32.3 g/dL (28.0-37.0); MCV 85.4 fL (80.0-100.0); MPV 7.8 fl. (7.2-11.1); RBC 4.51 mil/uL (4.20-5.00); RDW-CV 16.2 % (10.5-14.5); WBC 6.9 thou/uL (4.0-11.0)
[2018-05-29 05:44] LABS: ALBUMIN 2.4 g/dL (3.4-5.0); CALCIUM 8.7 mg/dL (8.5-10.1); CREATININE 1.3 mg/dL (0.6-1.3); MAGNESIUM 1.8 mg/dL (1.8-2.4); POTASSIUM 3.7 mmol/L (3.5-5.1); TOTAL BILIRUBIN 0.3 mg/dL (<0.1-1.0); TOTAL PROTEIN 7.4 g/dL (6.4-8.2)
[2018-05-29 08:06] VITALS: BP 182/58
--- NOTE | 2018-05-29 10:51 | NUR ---
ASSUMED CARE OF PATIENT AT 0730 FROM NIGHT NURSE. PATIENT IS A&O TO SELF. PATIENT IS CONFUSED AND IRRITABLE WITH DELUSIONS. PATIENT WAS COMBATIVE WITH NURSE. VSS. TRACING A. FIB. ON MONITOR. PATIENT REFUSED MORNING MEDS AND BREAKFAST. ATTEMPTED TO HAVE PATIENT EAT WHEN ARRIVED. PATIENT ATE SOME APPLESAUCE. PATIENT REPOSITIONED AND PRESSURE WOUNDS ON BUTTOCKS ASSESSED. DRESSING CHANGED. PATIENT IS CURRENTLY LAYING BED WITH AT BEDSIDE. CALL LIGHT AND FALL PRECAUTIONS IN PLACE. PERSONAL ITEMS WITHIN REACH OF PATIENT. WILL CONTINUE TO MONITOR
[2018-05-29 12:00] VITALS: BP 139/65
--- NOTE | 2018-05-29 16:47 | NUR ---
PATIENT HAS BEEN RESTING IN BED DURING THE AFTERNOON. VSS. PATIENT IS A&O TO SELF. TRACING A. FIB. 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 CONTINUES TO BE CONFUSED AND HAVE DELUSIONS. PATIENT ALLOWED TECH TO ONLY TAKE BP AND PULSE. COUGHING HAS PRODUCED SOME SPUTUM, BUT UNABLE TO OBSERVE. PATIENT CONTINUES TO REFUSE ALL MEDICATIONS AND INSULIN. PATIENT REFUSED TO ALLOW BLOOD GLUCOSE TO BE TAKEN FOR 1730 TIME. CALL LIGHT AND FALL PRECAUTIONS IN PLACE. PERSONAL BELONGINGS WITHIN PATIENT'S REACH. WILL CONTINUE TO MONITOR.
--- NOTE | 2018-05-29 17:22 | NUR ---
THIS NURSE REVIEWED [facility]IN'S CHARTING AND NURSING NOTES AND AGREES.
[2018-05-29 20:00] VITALS: BP 145/47
[2018-05-30] VITALS: BP 123/73
[2018-05-30 04:00] VITALS: BP 118/64
--- NOTE | 2018-05-30 05:16 | NUR ---
ASSUMED PT CARE AT 1930. ASSESSMENT COMPLETED CHARTED. PT HAS BEEN REFUSING ALL MEDS, WATER, AND INSULIN DUE TO NOT TRUSTING ANYONE TO "NOT POISON" HER. [id number] COMPLETED CHARTED. INCONTINENT OF URINE ALL SHIFT. WILL CONTINUE TO MONITOR.
[2018-05-30 08:14] VITALS: BP 153/71
[2018-05-30 08:54] LABS: HEMATOCRIT 41.1 % (37.0-47.0); HEMOGLOBIN 13.1 gm/dL (12.0-15.0); MCH 27.5 pg (26.0-34.0); MCV 86.1 fL (80.0-100.0); MPV 7.7 fl. (7.2-11.1); RBC 4.77 mil/uL (4.20-5.00); RDW-CV 16.1 % (10.5-14.5); WBC 6.1 thou/uL (4.0-11.0)
[2018-05-30 09:16] LABS: ALBUMIN 2.6 g/dL (3.4-5.0); CALCIUM 8.9 mg/dL (8.5-10.1); CREATININE 1.1 mg/dL (0.6-1.3); MAGNESIUM 1.7 mg/dL (1.8-2.4); POTASSIUM 3.7 mmol/L (3.5-5.1); TOTAL BILIRUBIN 0.4 mg/dL (<0.1-1.0); TOTAL PROTEIN 7.9 g/dL (6.4-8.2)
--- NOTE | 2018-05-30 10:00 | NUR ---
ASSUMED CARE OF PATIENT AT 0730 FROM NIGHT NURSE. PATIENT A&O TO SELF AND PLACE. VSS, BUT PATIENT DID NOT ALLOW TEMPATURE TO BE TAKEN. PATIENT HAS A CALM AFFECT AND IS COOPERATIVE WITH MEDICATIONS. PATIENT REFUSED INSULIN. PT WAS COOPERATIVE WITH LABS THIS AM. WOUND CARE PROVIDED AND PROGRESS PICTURES TAKEN. PATIENT CURRENTLY RESTING IN BED. FALL PRECAUTIONS IN PLACE. CALL LIGHT AND PERSONAL BELONGINGS WITHIN REACH OF PATIENT. WILL CONTINUE TO MONITOR.
[2018-05-30 12:02] VITALS: BP 141/68
[2018-05-30 15:26] VITALS: BP 132/51
--- NOTE | 2018-05-30 16:25 | NUR ---
PATIENT HAS BEEN LAYING IN BED THROUGHOUT THE AFTERNOON. TURNS DONE Q2H. A&O TO SELF AND PLACE. VSS. PATIENT ON RA. 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 NO IV ACCESS-DOCTOR IS AWARE.MAGNESIUM REPLACED WITH PO MEDICATIONS. PATIENT'S APPETITE IS FAIR. PATIENT TAKING INSULIN AND MEDICATIONS ORDERED. FALL PRECAUTIONS IN PLACE. CALL LIGHT AND PERSONAL BELONGINGS WITHIN REACH OF PATIENT. WILL CONTINUE TO MONITOR.
--- NOTE | 2018-05-30 18:04 | NUR ---
THIS NURSE REVIEWED [facility]'S CHARTING AND NURSING NOTES AND AGREES WITH INFORMATION.WILL CONTINUE TO MONITOR FOR DURATION OF SHIFT.
[2018-05-30 20:00] VITALS: BP 112/53
[2018-05-31] VITALS: BP 109/61
[2018-05-31 04:00] VITALS: BP 120/53
--- NOTE | 2018-05-31 04:04 | NUR ---
ASSUMED PT CARE AT 1930. ASSESSMENT COMPLETED CHARTED. NO C/O PAIN OR DISCOMFORT. [id number] CHARTED. UNABLE TO MAKE NEEDS KNOWN. TOOK ALL MEDICATION PER P.O. THIS SHIFT. WILL CONTINUE TO MONITOR.
--- NOTE | 2018-05-31 07:15 | NUR ---
CHANGE OF SHIFT, BEDSIDE REPORT GIVEN PATIENT SEEN AT BEDSIDE, IN BED ASLEEP ASSUMED PATIENT CARE
[2018-05-31 08:00] VITALS: BP 141/49
[2018-05-31 12:00] VITALS: BP 130/62
[2018-05-31 16:00] VITALS: BP 148/61
--- NOTE | 2018-05-31 17:48 | NUR ---
I have reviewed the documentation by CHEO GREENFIELD from TODAY to 05/31/18 and I concur with it. ADITYA ORTEGA
[2018-05-31 19:50] VITALS: BP 117/45
[2018-06-01] VITALS: BP 148/57
[2018-06-01 04:00] VITALS: BP 139/65
--- NOTE | 2018-06-01 04:27 | NUR ---
RECIEVED REPORT AND ASSUMED CARE AT 1900. SOUVENIR AND NOVELTY MAKER IN PLACE. DISTOLIC BP LOW SO BP MEDS HELD, OTHER THAN THAT VITAL SIGNS STABLE. PT DENIES PAIN AT THIS TIME NOR APPEARS TO HAVE PAIN AT THIS TIME. ASSESSMENT COMPLETED AND DISCUSSED PLAN OF CARE. BED LOCKED, ALARM ON AND CALL LIGHT WITHIN REACH. FALL PRECAUTIONS IN PLACE. HOURLY ROUNDING DONE AND ALL NEEDS MET. NURSING WILL CONTINUE TO MONITOR.
--- NOTE | 2018-06-01 07:20 | NUR ---
CHANGE OF SHIFT, BEDSIDE REPORT GIVEN PATIENT SEEN AT BEDSIDE, IN BED ASLEEP ASSUMED PATIENT CARE
[2018-06-01 08:00] VITALS: BP 127/71
[2018-06-01] MEDS ORDERED: SINGULAIR 10 MG10 M1 PO (09:44)
[2018-06-01] MEDS ORDERED: GRAFCO SILVER1 EACH TOP (09:44)
--- NOTE | 2018-06-01 10:16 | NUR ---
Spoke with , now in agreement with skilled, dc orders written. CM faxed referral to [facility] per 's preference, awaiting decision to accept and insurance auth.
[2018-06-01 12:19] VITALS: BP 126/63
[2018-06-01 16:35] VITALS: BP 148/56
[2018-06-01 19:40] VITALS: BP 135/61
[2018-06-02] VITALS: BP 101/79
--- NOTE | 2018-06-02 01:40 | NUR ---
RECIEVED REPORT AND ASSUMED CARE AT 1900. NEUROLOGY STROKE PHYSICIAN IN PLACE. VITAL SIGNS STABLE. PT IS UP WITH MAX ASSIST. PT WAS KIND OF TEARFUL AT THE BEGINING OF THE SHIFT AND JUST WANTED TO GO BACK TO SLEEP AND WAS FINE THE REST OF THE SHIFT. PT DENIES ANY PAIN OR APPEARS TO HAVE PAIN AT THIS TIME. ASSESSMENT COMPLETED AND DISCUSSED PLAN OF CARE. BED LOCKED, ALARM ON AND CALL LIGHT WITHIN REACH. FALL PRECAUTIONS IN PLACE. HOURLY ROUNDING DONE AND ALL NEEDS MET. NURSING WILL CONTINUE TO MONITOR.
[2018-06-02 04:00] VITALS: BP 124/57
--- NOTE | 2018-06-02 07:20 | NUR ---
CHANGE OF SHIFT BEDSIDE REPORT GIVEN PATIENT SEEN AT BEDSIDE, IN BED ASLEEP ASSUMED PATIENT CARE
[2018-06-02 08:00] VITALS: BP 111/63
--- NOTE | 2018-06-02 09:04 | NUR ---
Liaison from [facility] on her way to complete onsite.
[2018-06-02 12:00] VITALS: BP 135/67
[2018-06-02 16:22] VITALS: BP 121/44
[2018-06-02 20:00] VITALS: BP 106/71
[2018-06-03] VITALS: BP 141/63
[2018-06-03 04:00] VITALS: BP 165/75
--- NOTE | 2018-06-03 05:06 | NUR ---
ASSUMED PT CARE AT 1930. ASSESSMENT COMPLETED CHARTED. UNABLE TO MAKE NEEDS KNOWN. [id number] COMPLETED CHARTED. INCONTINENT ALL SHIFT AND HAS BEEN RESTIN IN BED ALL NIGHT. VSS. NO C/O PAIN OR DISCOMFORT. HAS BEEN PLEASENT AND COOPERATIVE THIS SHIFT. WILL CONTINUE TO MONITOR.
[2018-06-03 08:15] VITALS: BP 135/46
--- NOTE | 2018-06-03 09:26 | NUR ---
Insurance is requesting more comprehensive therapy notes, updated PT/OT. Plan for Pt post skilled continues to be for Pt to return home with her . has arranged for in home care help per Pt's insurance. Pt ready to dc once auth is received.
[2018-06-03 12:00] VITALS: BP 148/80
--- NOTE | 2018-06-03 13:55 | NUR ---
ASSUMED CARE OF PT AROUND 0730 THIS AM. REFER TO ASSESSMENT. AWAITING INSURANCE AUTHORIZATION FOR DC TO SNF. AT BEDSIDE. NEURO CONSULTED THIS SHIFT FOR CONCERNS OF LETHARGY FOR ANTISEIZURE MEDS. NO OTHER CONCERNS AT THIS TIME. CLWR. WCTM.
--- NOTE | 2018-06-03 14:42 | NUR ---
PT RESTS IN BED.EEG COMPLETED.PT AT BEDSIDE WORKING WITH PT.PT WITH EYES CLOSED BUT ABLE TO STATE NAME. PT TO HAVE CT THIS AFTERNOON.
[2018-06-03 16:00] VITALS: BP 143/72
--- NOTE | 2018-06-03 16:53 | NUR ---
I have reviewed the documentation by CHEO GREENFIELD from TODAY to 06/03/18 and I concur with it. ADITYA ORTEGA
[2018-06-03 20:00] VITALS: BP 96/60
[2018-06-04 00:04] VITALS: BP 146/75
[2018-06-04 04:00] VITALS: BP 150/60
--- NOTE | 2018-06-04 05:35 | NUR ---
ASSUMED PT CARE AT 1930. ASSESSMENT COMPLETED CHARTED. [id number] COMPLETED CHARTED. INCONTINENT IN BED ALL SHIFT. HAS BEEN HAVING AUDIBLE AND VISUAL HALLUCINATIONS OF A MAN IN HER ROOM. HAS BEEN COOPERATIVE AND PLEASENT TO STAFF. NO C/O PAIN OR DISCOMFORT. PT RESTING IN BED AT THIS TIME. WILL CONTINUE TO MONITOR.
[2018-06-04 08:15] VITALS: BP 128/68
--- NOTE | 2018-06-04 08:15 | NUR ---
RECEIVED REPORT FROM FÉLIX AND ASSUMED CARE OF PT @ 6212.PT IS A/O TO SELF.TRACING AFIB ON THE MONITOR.PT HAS NO IV ACCESS.CALM AND COOPERATIVE WITH NO C/O PAIN AT TIME OF ASSESSMENT.DRESSINGS CHANGED ON BUTTOCKS WOUNDS THIS AM.PT WORKED WITH PHYSICAL THERAPY AND MINGO UP IN CHAIR.CALL LIGHT AND FALL PRECAUTIONS IN PLACE.WILL CONTINUE TO MONITOR.
--- NOTE | 2018-06-04 10:16 | CON ---
[address] [address] CONSULTATION Name: PAULETTETHERESA ALEX Room: [address] IN M.R.#: [id number] Admission: 05/19/18 Attend Phys: Dhiraj Richardson MD Discharge: Date of : 41 Report #: [id number] THIS REPORT FOR: //name// CC: Dhiraj Shoemaker DATE OF SERVICE: 05/25/2018 HISTORY OF PRESENT ILLNESS: This is a 78-year-old female patient who was evaluated by me for an episode of unresponsiveness. She was confused and not acting correctly when she came in. She has become better. She had similar symptom when she was admitted to [facility]. I do not have any of those records. She apparently was taken to [facility] for sepsis. She had one grand mal seizure at that time. She was put on some medication, which the does not remember. She had a pretty prolonged course in [facility]. She is somewhat better, but she has not fully recovered and is not back to her baseline. REVIEW OF SYSTEMS: Indicate that the patient said she was functional before March of this year. She had sepsis for which she was admitted to [facility]. She had altered mental status. She had urinary tract infection this time as well as last time. She had some pain in the eye that time. They did an MRI on this patient and it is not sure what MRI showed. Pain in the eye became better. They even did a spinal tap in this patient. I do not have the results of the spinal tap. She saw a neurologist in [facility]. She said the name was Dr. Lehman. She is on anticoagulation and looks like from her that is because of atrial fibrillation. She has a history of diabetes, hypertension and dyslipidemia. She has a pretty significant neuropathy. She has stopped driving some time ago because she could not feel the pedal. Otherwise, she is not complaining of any new eye, ENT, cardiac, respiratory, GI, musculoskeletal, constitutional, dermatological, hematological, psychiatric, throat, allergic symptom associated with except as described above. PAST MEDICAL HISTORY: Positive for neuropathy involving both lower extremities. FAMILY HISTORY: Negative for any early age stroke. SOCIAL HISTORY: She has smoked in the past, but does not smoke or drink any alcohol. PHYSICAL EXAMINATION: Indicate that she is still confused. When she concentrates, she was able to tell me the month after second or third try. She knew what hospital she was in, but overall her memory was poor. Speech was intact. She was partly oriented. Cranial nerve examination 2-12 was attempted and looks mostly unremarkable. She moves all 4 extremities. It is very difficult to tell about the position sense. [place] [address] CONSULTATION Name: THERESA CALDWELL Room: [address] IN .R.#: [id number] Admission: 05/19/18 Attend Phys: Dhiraj Richardson MD Discharge: Date of : 41 Report #: [id number] lower extremities. Tone is symmetrical. There is no cerebellar sign. I could not look at the patient's fundus. Her pulses are difficult to feel. She has no edema, cyanosis or jaundice. She is obese individual who does not have any dysmorphic features of eyes, ears and face. Her vision and hearing looks adequate. Blood pressure is 132/68, respirations 16, pulse is 74, temperature is 98.4. LABORATORY DATA: White count is 5.3. She does have pretty significant UTI. She did not have any imaging study of the brain. IMPRESSION: This patient most likely has encephalopathy. It looks like the seizures were because of encephalopathy, but I cannot rule out other etiology because I do not have the prior workup. She is already on two medications for seizures, so I suspect her seizure must be uncontrolled. That is different than the history I get from the who says that she had only one seizure. RECOMMENDATIONS: 1. I suggested that we get the record from [facility] rather than repeating all the tests. 2. I will look at that workup once it is available. 3. I will get an EEG done. 4. I will continue lacosamide and Keppra. 5. I will get an EEG done. 6. I will get a CAT scan done. 7. After the above workup is available, we will see what further workup need to be done. The patient was discussed with Dr. Díaz in detail. More than 50 minutes of time was spent taking care of this patient today and majority of that time was spent counseling and coordinating the patient's care. We will await the record from [facility] and hopefully we can get that very fast. <ELECTRONICALLY SIGNED> By: Cody Ballard MD 06/04/18 1016 [id number] [id number] Ballard MD /nt
--- NOTE | 2018-06-04 10:16 | EEG ---
[address] [address] EEG STUDY REPORT Name: THERESA CALDWELL Room: [address] IN M.R.#: [id number] Admission: 05/19/18 Attend Phys: Dhiraj Richardson MD Discharge: Date of : 41 Report #: [id number] THIS REPORT FOR: //name// CC: Dhiraj Shoemaker DATE OF SERVICE: 06/03/2018 This patient is being evaluated for altered mental status. EEG was done by placing the electrode by standard 10-20 system of electrode placement. Both referential and sequential montages were used for recording. Background activity in this patient's EEG is about 5-6 Hz and 30 microvolt. EEG fluctuates a lot, but continued to be slow throughout the record. Photic stimulation is unremarkable. No active epileptiform activity was noticed. IMPRESSION: This is an abnormal EEG because it is diffusely slow. That is a nonspecific finding which can occur with dementia, encephalopathy, effect of psychotropic medication. Finding is nonspecific; therefore, clinical correlation is recommended. No active epileptiform activity was noticed during this record. <ELECTRONICALLY SIGNED> By: Cody Ballard MD 06/04/18 1016 0916 [id number] Ballard MD /nt
--- NOTE | 2018-06-04 10:16 | EEG ---
[address] [address] EEG STUDY REPORT Name: THERESA CALDWELL Room: [address] IN M.R.#: [id number] Admission: 05/19/18 Attend Phys: Dhiraj Richardson MD Discharge: Date of : 41 Report #: [id number] THIS REPORT FOR: //name// CC: Dhiraj Shoemaker DATE OF SERVICE: 05/25/2018 This patient is being evaluated for altered mental status. EEG was done by placing the electrode by standard 10-20 system of electrode placement. Both referential and sequential montages were used for recording. Background activity in this patient's EEG is about 7-8 Hz and 30 microvolt. Photic stimulation was unremarkable. This patient went to sleep that was associated with bilaterally symmetrical slowing and vertex sharp waves. Throughout the record, no active epileptiform activity was noticed. IMPRESSION: This is a moderately abnormal EEG because it is disorganized and poorly formed. That is a nonspecific abnormality, which can occur with encephalopathy, effect of psychotropic medication, dementia, etc. Clinical correlation is recommended. <ELECTRONICALLY SIGNED> By: Cody Ballard MD 06/04/18 1016 1609 [id number] Ballard MD /nt
[2018-06-04 11:30] VITALS: BP 107/68
[2018-06-04 17:00] VITALS: BP 101/53
--- NOTE | 2018-06-04 17:53 | NUR ---
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
[2018-06-04 20:00] VITALS: BP 106/60
[2018-06-05] VITALS (7 sets, daily range): BP systolic 100–146; BP diastolic 51–72
--- NOTE | 2018-06-05 04:35 | NUR ---
ASSUMED PT CARE AT APPROX.1930. PT IS LETHARGIC BUT WAKES UP TO VERBAL STIMULI, IS ORIENTED TO SELF ONLY. VSS ON 2L OF O2 PER NC. RE-ASSESSMENT DONE AND CHARTED. REPOSITIONING DONE Q2H. KEPT DRY AND CLEAN. DRESSING CHANGE CARE DONE ON THE LEFT BUTTOCK. CALL LIGHT WITHIN REACH. HOURLY ROUNDING DONE FOR PT SAFETY.
[2018-06-05 09:59] LABS: BE -0.9 mmol/L (-2 to +3); PCO2 39.7 mmHg (35.0-45.0); PO2 102.3 mmHg (75.0-100.0); pH 7.395 (7.340-7.450)
--- NOTE | 2018-06-05 10:00 | NUR ---
RECEIVED REPORT FROM JUAN LUIS AND ASSUMED CARE OF PT @ 9495.PT IS A/O TO SELF.VSS.TRACING AFIB ON THE MONITOR.NEW IV INSERTED PER ORDERS IN LEFT AC.FLUID BOLUS GIVEN PER ORDERS.PT STRAIGHT CATHED TO COLLECT UA PER ORDERS.PT IS CALM AND COOPERATIVE WITH NO C/O PAIN.WOUND DRESSINGS CHANGED.PT COMPLETED MRI PER NEURO ORDERS.PT LEFT RESTING IN BED WITH CALL LIGHT AND FALL PRECAUTIONS IN PLACE.WILL CONTINUE TO MONITOR.
[2018-06-05 10:04] LABS: ABSOLUTE BASOPHILS 0.1 thou/uL (0.0-0.2); ABSOLUTE EOSINOPHILS 0.2 thou/uL (0.0-0.7); ABSOLUTE LYMPHOCYTES 1.4 thou/uL (0.8-5.3); ABSOLUTE MONOCYTES 0.9 thou/uL (0.0-1.2); ABSOLUTE NEUTROPHILS 9.5 thou/uL (1.6-8.1); EOSINOPHILS 1.4 %; HEMATOCRIT 41.7 % (37.0-47.0); HEMOGLOBIN 13.4 gm/dL (12.0-15.0); LYMPHOCYTES 11.8 %; MCH 27.7 pg (26.0-34.0); MCHC 32.1 g/dL (28.0-37.0); MCV 86.3 fL (80.0-100.0); MONOCYTES 7.7 %; MPV 7.7 fl. (7.2-11.1); NUCLEATED RBCS 0 /100WBC; PLATELET COUNT* 262 thou/uL (150-400); POLYS 78.1 %; RBC 4.84 mil/uL (4.20-5.00); RDW-CV 16.5 % (10.5-14.5); WBC 12.1 thou/uL (4.0-11.0)
[2018-06-05 10:20] LABS: CALCIUM 8.9 mg/dL (8.5-10.1); CREATININE 1.4 mg/dL (0.6-1.3); MAGNESIUM 1.7 mg/dL (1.8-2.4); POTASSIUM 4.6 mmol/L (3.5-5.1)
[2018-06-05 11:44] LABS: URINE BLOOD NEGATIVE (Negative); URINE CLARITY SL CLOUDY; URINE COLOR DARK YELLOW; URINE GLUCOSE-RANDOM NEGATIVE (Negative); URINE KETONES TRACE (Negative); URINE LEUKOCYTES-REFLEX NEGATIVE (Negative); URINE NITRITE-REFLEX NEGATIVE (Negative); URINE PROTEIN TRACE (Negative); URINE SPECIFIC GRAVITY >= 1.030 (1.005-1.030); URINE UROBILINOGEN 0.2 E.U./dl (0.2-1.0)
[2018-06-05 11:45] LABS: ICTOTEST (BILI CONFIRMATORY) Negative (Negative); URINE BILIRUBIN 2+ (Negative)
[2018-06-05 11:53] LABS: SQUAMOUS 4-10 Moderate /LPF (0-3)
[2018-06-05 11:54] LABS: BACTERIA-REFLEX 1-9 Few /HPF (None Seen); CRYSTALS None Seen /LPF (None Seen); HYALINE CASTS 4-10 Moderate /LPF (None Seen); MUCUS 0-3 Light strn/LPF (None Seen); URINE RBC None Seen /HPF (0-2); URINE WBC-REFLEX 0-5 Rare /HPF (0-5)
[2018-06-05 11:55] LABS: AMORPHOUS URATES Moderate /LPF (None Seen)
--- NOTE | 2018-06-05 17:58 | NUR ---
VSS,TRACING A FIB ON THE MONITOR.PT HAD SEVERAL EPISODES OF VTACH. CARDIOLOGY WAS CONSULTED. PT REMAINS CONFUSED AND LETHARGIC THROUGHOUT THE DAY.A/O TO PERSON.O2 STOPPED DUE TO HIGH PO2 IN ABG.MRI WITHOUT CONTRAST DONE TODAY.UP WITH MAX ASSIST.MG REPLACEMENT PROTOCOL INITIATED.PT HAS POOR APPITIATE.NEW IV INSERTED IN L AC.Q 2 TURN COMPLETED,WOUND CARE PROVIDED AND DSG CHANGED .HOURLY ROUNDING DONE FOR SAFETY.CALL LIGHT AND FALL PRECAUTIONS IN PLACE.WILL CONTINUE TO MONITOR.
--- NOTE | 2018-06-05 18:32 | NUR ---
THIS NURSE REVIEWED EDISON BRAND'S CHARTING AND PM NOTE AND AGREES WITH INFORMATION.WILL CONTINUE TO MONITOR FOR DURATION OF SHIFT.
[2018-06-06] VITALS: BP 140/71
[2018-06-06 04:00] VITALS: BP 116/36
--- NOTE | 2018-06-06 04:52 | NUR ---
ASSUMED PT CARE AT 1930. ASSESSMENT COMPLETED CHARTED. UNABLE TO MAKE NEEDS KNOWN. [id number] COMPLETED CHARTED. NO C/O PAIN OR DISCOMFORT EXCEPT WITH CLEANING BOTTOM. PT IS COMPLIANT TODAY, TOOK ALL MEDICATIONS BUT REFUSED PM INSULIN. TRIED GETTING OUT OF BED BY HERSELF A COUPLE TIMES BUT WAS REDIRECTED AND STOPPED TRYING WHEN SHE HAD A LARGE BM. PT RESTING IN BED AT THIS TIME. WILL CONTINUE TO MONITOR.
[2018-06-06 06:23] LABS: HEMATOCRIT 41.3 % (37.0-47.0); HEMOGLOBIN 13.4 gm/dL (12.0-15.0); MCHC 32.5 g/dL (28.0-37.0); MCV 86.3 fL (80.0-100.0); MPV 7.8 fl. (7.2-11.1); RBC 4.79 mil/uL (4.20-5.00); RDW-CV 16.7 % (10.5-14.5)
[2018-06-06 06:46] LABS: ALBUMIN 2.8 g/dL (3.4-5.0); CALCIUM 8.9 mg/dL (8.5-10.1); CREATININE 1.5 mg/dL (0.6-1.3); MAGNESIUM 1.8 mg/dL (1.8-2.4); POTASSIUM 4.2 mmol/L (3.5-5.1); TOTAL BILIRUBIN 0.4 mg/dL (<0.1-1.0); TOTAL PROTEIN 7.7 g/dL (6.4-8.2)
[2018-06-06 07:50] VITALS: BP 123/62
--- NOTE | 2018-06-06 08:22 | CON ---
[address] [address] CONSULTATION Name: THERESA CALDWELL Room: [address] IN .R.#: [id number] Admission: 05/19/18 Attend Phys: Dhiraj Richardson MD Discharge: Date of : 41 Report #: [id number] THIS REPORT FOR: //name// CC: Dhiraj Shoemaker DATE OF SERVICE: 06/05/2018 CARDIOLOGY CONSULTATION INDICATION: Atrial fibrillation/arrhythmia. HISTORY OF PRESENT ILLNESS: The patient is a 78-year-old white female who was admitted to the hospital with a gluteal ulcer and sepsis. She had surgery a few weeks ago. She has chronic atrial fibrillation. She is chronically anticoagulated. Today, she was noted to have some wide complex episodes that appear to be rate controlled bundle branch block. I believe she has remained in atrial fibrillation without other specific arrhythmia. She has no other cardiac complaints. PAST MEDICAL HISTORY: 1. Chronic atrial fibrillation with chronic anticoagulation. 2. Hypertension. 3. Type 2 diabetes mellitus. 4. Factor V Leiden gene mutation. 5. Lupus. 6. Hypercholesterolemia. 7. Stasis dermatitis. 8. Diverticulosis. 9. Neuropathy. 10. Psoriasis. 11. Obesity. CURRENT MEDICATIONS: Carvedilol 6.25 mg p.o. b.i.d., lacosamide 100 mg p.o. b.i.d., lisinopril 20 mg p.o. b.i.d., Pepcid 20 mg daily, Eliquis 5 mg b.i.d., insulin as directed, atorvastatin 20 mg at bedtime. PHYSICAL EXAMINATION: VITAL SIGNS: Blood pressure 125/70, pulse is irregular and presently in the 90s. GENERAL: This is a pleasant lady who is in no distress. HEENT: Normocephalic, atraumatic. NECK: Shows a thick neck without obvious jugular venous distention. CHEST: Clear anteriorly. CARDIOVASCULAR: Reveals an irregularly irregular [place] [address] CONSULTATION Name: THERESA CALDWELL ALEX Room: [address] IN .R.#: [id number] Admission: 05/19/18 Attend Phys: Dhiraj Richardson MD Discharge: Date of : 41 Report #: [id number] ABDOMEN: Protuberant, positive bowel sounds. EXTREMITIES: Have chronic skin changes noted without significant edema. IMPRESSION AND RECOMMENDATIONS: 1. Chronic atrial fibrillation, adequately rate controlled. At times, when her rate increases a bit, she has rate controlled bundle branch block. At this point, I am increasing her carvedilol to 12.5 mg twice daily for better rate control. Continue chronic anticoagulation with Eliquis. 2. Hypertension, adequately controlled on current regimen. 3. Hyperlipidemia. Continue atorvastatin at current dose. 4. Chronic anticoagulation with Eliquis. The patient is having no bleeding problems. From a cardiac standpoint, the patient appears stable. I would not recommend further cardiac treatment with the exception of improved rate control. We will follow as needed. <ELECTRONICALLY SIGNED> By: Vadim Diaz MD, FACC 06/06/18 0822 [id number] [id number] Diaz MD, FACC /nt
--- NOTE | 2018-06-06 10:45 | NUR ---
RECEIVED REPORT FROM LISA HEARD AND ASSUMED CARE OF PT @ 7256.PT IS A/O TO SELF.TRACING AFIB ON THE MONITOR.IV PATENT AND SALINE LOCKED.PT IS CALM AND COOPERATIVE WITH NO C/O PAIN.PT LEFT RESTING IN BED WITH CALL LIGHT AND FALL PRECAUTIONS IN PLACE.WILL CONTINUE TO MONITOR.FAMILY AT BEDSIDE.
[2018-06-06 12:59] VITALS: BP 124/52
--- NOTE | 2018-06-06 16:46 | NUR ---
VSS.CARDIAC MONITORING IN PLACE WITH NO CHANGES.IV PATENT AND SALINE LOCKED.NO C/O PAIN.PT WORKED WITH PHYSICAL THERAPY AND SAT UP IN WHEELCHAIR FOR A FEW HOURS.WOUND DRESSINGS CHANGED AND PROGRESS PICTURES TAKEN.HOURLY ROUNDING COMPLETED FOR PT SAFETY.CALL LIGHT AND FALL PRECAUTIONS IN PLACE.WILL CONTINUE TO MONITOR FOR DURATION OF SHIFT.
[2018-06-06 17:21] VITALS: BP 158/72
[2018-06-06 20:00] VITALS: BP 135/64
[2018-06-07] VITALS: BP 115/53
[2018-06-07 04:00] VITALS: BP 123/56
--- NOTE | 2018-06-07 06:52 | NUR ---
ASSUMED PT CARE AT 1930. ASSESSMENT COMPLETED CHARTED. PT RESTING IN BED AT THIS TIME. STILL HALLUCINATING YET PLEASENT TO STAFF AND COOPERATIVE. [id number] COMPLETED CHARTED. NO C/O PAIN OR DISCOMFORT. WILL CONTINUE TO MONITOR.
[2018-06-07 09:00] VITALS: BP 114/68
--- NOTE | 2018-06-07 09:58 | NUR ---
CM faxed updated therapy notes to [facility], asked that insurance auth be initiated, Pt ready to dc. Following.
--- NOTE | 2018-06-07 12:23 | OP ---
[address] [address] OPERATIVE REPORT Name: THERESA CALDWELL Room: [address] IN M.R.#: [id number] Admission: 05/19/18 Attend Phys: Dhiraj Richardson MD Discharge: Date of : 42 Report #: [id number] THIS REPORT FOR: //name// CC: Dhiraj Shoemaker DATE OF SERVICE: 05/26/2018 PREOPERATIVE DIAGNOSIS: Unstageable 2 cm x 3 cm left gluteal pressure ulcer. POSTOPERATIVE DIAGNOSIS: Unstageable 2 cm x 3 cm left gluteal pressure ulcer. OPERATIVE PROCEDURE: Excisional debridement down to and including a 2 cm x 3 cm left gluteal ulcer. ANESTHESIA: 1% lidocaine with epinephrine. DESCRIPTION OF PROCEDURE: The patient was at bedside, placed on her right side and her left gluteal fold was carefully prepped and draped in a sterile fashion. I infiltrated the ulcer site with 3 mL of 1% lidocaine with epinephrine, placed 4% lidocaine cream on the ulcer itself. Then, using pickups and a #15 scalpel blade, a sharp excisional debridement down to and including healthy bleeding tissue of the 2 x 3 cm gluteal ulcer was accomplished. Bleeding was controlled with silver nitrate and then the wounds were carefully redressed with Aquacel Ag and DuoDERM and OpSite. Estimated blood loss was 5 mL. Cultures were obtained. Sponge and instrument counts correct. The patient was in stable condition at her bed. <ELECTRONICALLY SIGNED> By: Maggi Hearn MD 06/07/18 1223 1313 1325Maggi Hearn MD /nt
[2018-06-07 12:37] VITALS: BP 118/42
--- NOTE | 2018-06-07 13:54 | NUR ---
I have reviewed the documentation by CHEO GREENFIELD from 06/04/18 to 06/07/18 and I concur with it. SVETLANA BARRIOS
--- NOTE | 2018-06-07 14:09 | NUR ---
ASSUMED PT CARE AT 0700 PT IS ALERT AND ORIENTED X 1-2 PT IS CONFUSED, PT DENIES PAIN EXCEPT WITH TURNS PT DENIES SOA ON RA, PT IS UP WITH ASSIST X 2-3 WITH MAYITO LIFT PT IS A FALL RISK BED ALARM IS ON, PT IS AFIB ON THE MONITOR THIS AM, PHYSICIAN CHANGED STATUS STOP TELEMETY PT IS NOW MED SURG, PT HAS 1L OF FLUIDS RUNNING PER ORDER, PT IS Q 2 HOURS TURNS, PT IS PROGRESSING TOWARDS GOALS, WILL CONTINUE TO MONITOR
--- NOTE | 2018-06-07 15:41 | NUR ---
I have reviewed the documentation by CHEO GREENFIELD from TODAY to 06/07/18 and I concur with it. ADITYA ORTEGA
[2018-06-07 16:00] VITALS: BP 113/65
[2018-06-07 21:00] VITALS: BP 133/67
[2018-06-08] VITALS: BP 145/61
[2018-06-08 05:11] LABS: HEMATOCRIT 44.8 % (37.0-47.0); MCH 27.7 pg (26.0-34.0); MCHC 31.1 g/dL (28.0-37.0); MPV 8.4 fl. (7.2-11.1); RBC 5.04 mil/uL (4.20-5.00); RDW-CV 16.7 % (10.5-14.5); WBC 5.7 thou/uL (4.0-11.0)
[2018-06-08 05:39] LABS: CALCIUM 8.6 mg/dL (8.5-10.1); CREATININE 1.1 mg/dL (0.6-1.3); MAGNESIUM 1.9 mg/dL (1.8-2.4); POTASSIUM 3.8 mmol/L (3.5-5.1)
[2018-06-08 08:19] VITALS: BP 138/63
--- NOTE | 2018-06-08 08:20 | NUR ---
PT IS ABLE TO COMMUNICATE HER NEEDS TO STAFF WITH SOME DIFFICULTY; SHE HAS HALLUCINATIONS AND IS OFTEN CONFUSED. SHE HAS DENIED THE NEED FOR PAIN MEDICATION UP TO THIS TIME. SHE IS MED/SURG STATUS. POSSIBLE DISCHARGE TO A LTAC FACILITY BEFORE END OF WEEK.
--- NOTE | 2018-06-08 10:32 | NUR ---
ASSUMED CARE OF PT THIS AM AROUND 714- MS STATUS IN PLACE AND MAINTAINED INDICATED- UPON ASSESSMENT PT NOTED TO BE RESTING IN BED, EYES CLOSED- PT NOTED TO BE SLEEPY THIS AM, HARD TO ARROUSE AND SLEPT THROUGH BREAKFAST- PT A&O X2-3, FORGETFULL- INCONTINENT OF BOWEL AND BLADDER- Q 2HOUR TURNS IN PLACE ORDERED- PT UP TO W/C THIS AM PER OT- DIMINISHED LUNG SOUNDS NOTED, RESP EVEN AND UN-LABORED- VSS, O2 SAT 98%ON 2L VIA NC- ABD SOFT/OBESE/NON-TENDER, BS X4 QUADS- LAST BM REPORTED 06/06/18- IV NOTED TO RIGHT FA INTACT AND SL- BS MONITORED ORDERED- CALL LIGHT AND PERSONAL BELONGINGS WITH IN REACH- HOURLY ROUNDS IN PLACE R/T SAFETY/NEEDS- ALL NEEDS MET AT THIS TIME-WCTM
--- NOTE | 2018-06-08 16:38 | NUR ---
PT CURRNELTY RESTING IN BED, EYES CLOSED- IV TO RIGHT FA INTACT AND SL-MS STATUS IN PLACE AND MAINTAINED- PT WORKING WITH THERAPIES THIS SHIFT- UP TO BED WIDE W/C THIS SHIFT- FAIR PO INTAKE NOTED WITH MEALS WITH ASSISTANCE NOTED- BS MONITORED ORDERED, INSULIN PRESCIBED- Q [address] INDICATED- MEPLEX DRESSINGS REMAIN IN PLACE TO RIGHT AND LEFT BUTTOCKS THIS SHIFT WITH NO NEED TO CHANGE- PT DENIES ANY C/O PAIN/DISCOMFORT AT THIS TIME- CALL LIGHT AND PERSONAL BELONGINGS WITH IN REACH- HOURLY ROUNDS IN PLACE R/T SAFETY/NEEDS- ALL NEEDS MET AT THIS TIME-WCTM
[2018-06-08 17:39] VITALS: BP 144/53
[2018-06-09] VITALS: BP 129/54
--- NOTE | 2018-06-09 00:23 | NUR ---
ASSUMED CARE OF PT AT 1900. PT IS CONFUSED AND IS HALLUCINATING. LUNGS ARE COARSE. VSS. PERRLA. NO COMPLAINTS OF PAIN. PT IS SLEEPING QUIETLY IN BED. RESPIRATIONS ARE EVEN AND NONLABORED. WILL CONTINUE TO MONITOR PT.
[2018-06-09 05:34] LABS: ABSOLUTE EOSINOPHILS 0.2 thou/uL (0.0-0.7); ABSOLUTE LYMPHOCYTES 1.1 thou/uL (0.8-5.3); ABSOLUTE MONOCYTES 0.6 thou/uL (0.0-1.2); ABSOLUTE NEUTROPHILS 2.2 thou/uL (1.6-8.1); EOSINOPHILS 5.7 %; HEMATOCRIT 36.8 % (37.0-47.0); LYMPHOCYTES 26.7 %; MCH 27.7 pg (26.0-34.0); MCHC 32.1 g/dL (28.0-37.0); MCV 86.5 fL (80.0-100.0); MONOCYTES 14.3 %; MPV 8.5 fl. (7.2-11.1); NUCLEATED RBCS 0 /100WBC; PLATELET COUNT* 186 thou/uL (150-400); POLYS 52.3 %; RBC 4.26 mil/uL (4.20-5.00); RDW-CV 16.9 % (10.5-14.5); WBC 4.3 thou/uL (4.0-11.0)
[2018-06-09 05:56] LABS: HEMOGLOBIN 11.8 gm/dL (12.0-15.0)
[2018-06-09 05:59] LABS: ALBUMIN 2.4 g/dL (3.4-5.0); CALCIUM 8.4 mg/dL (8.5-10.1); CREATININE 1.1 mg/dL (0.6-1.3); POTASSIUM 3.8 mmol/L (3.5-5.1); TOTAL BILIRUBIN 0.2 mg/dL (<0.1-1.0); TOTAL PROTEIN 6.6 g/dL (6.4-8.2)
[2018-06-09 08:03] VITALS: BP 134/67
--- NOTE | 2018-06-09 08:52 | NUR ---
ASSUMED CARE OF PT THIS AM AROUND 714- MS STATUS IN PLACE AND MAINTAINED INDICATED- UPON ASSESSMENT PT NOTED TO BE RESTING IN BED- PT A&O X1-2 WITH NOTED CONFUSSION- CONTINENT VS INCONTINENT OF BOWEL AND BLADDER, USING BED GALE- EXT ASSIST X2/MAYITO FOR TRANSFERS- LCTA, RESP EVEN AND UN-LABORED- VSS, O2 SAT 98% ON 1L VIA NC THIS AM- ABD OBESE/SOFT/NON-TENDER, BS X4 QUADS- LAST BM REPORTED 06/08/18- IV NOTED TO RIGHT FA INTACT AND SL- FAIR PO INTAKE NOTED THIS AM WITH BREAKFAST-BS MONITORED ORDERED, INSULIN PRESCIBED- 1+ BLE EDEMA NOTED WITH DISCOLORATION/DRY SKIN- Q 2HOUR TURNS IN PLACE INDICATED- DRESSINGS NOTED INTACT TO RIGHT AND LEFT BUTTOCKS THIS AM-PT DENIES ANY C/O PAIN/DISCOMFORT THIS AM- CALL LIGHT AND PERSONAL BELONGINGS WITH IN REACH- HOURLY ROUNDS IN PLACE R/T SAFETY/NEEDS- ALL NEEDS MET AT THIS TIME-WCTM
[2018-06-09] MEDS ORDERED: VIMPAT50 MG PO ×2 (11:25)
[2018-06-09] MEDS ORDERED: MULTIVITAMINS1 EAC7 PO (11:25)
[2018-06-09] MEDS ORDERED: CARDIZEM60 MG PO (11:56)
[2018-06-09 11:58] VITALS: BP 134/67
--- NOTE | 2018-06-09 12:26 | NUR ---
Pt ready to dc, orders written. Faxed updated therapy notes to Gregg at [facility] and requested that insurance auth be initiated. Plan dc today.
--- NOTE | 2018-06-09 15:48 | NUR ---
ORDERS RECIEVIED FOR OKAY TO D/C TO SNF THIS SHIFT PER - CM HERE TO ARRANGE WITH INSTRUCTIONS/OKAY TO ACCEPT PER [facility]- PLAN [employer]ER PER EMT OF 1630 THIS SHIFT- UPDATED AND OKAY WITH PLANS- IV TO RIGHT FA D/C'D PRIOR TO D/C- PICTURES OBTAINED OF WOUNDS AND PLACED ON CHART FOR VIEWING- DRESSING CHANGES AND SITE CARE GIVEN TO WOUNDS ORDERED PRIOR TO D/C- BELONGINGS PACKED AND ACCOUNTED FOR PER PT AND TECH- REPORT CALLED TO [facility] AT 1550 AND SPOKE WITH ARNULFO HASSAN- ALL QUESTIONS AND CONCERNS ADDRESSED- PT KARSTENLTY PACKED ANDN READY FOR TRANSPORT- CALL LIGHT AND PERSONAL BELONGINGS WITH IN REACH- ALL NEEDS MET AT THIS TIME-RAJIV
== END 2018-06-09 16:40 | DRG 853 ==
LOC: M.ERS 11:25 → M.2W 13:29 → M.TBA-ER 13:29 → M.2W 15:14
PROVIDERS: Emergency Medicine Emergency Medical Services; Family Medicine; Internal Medicine; ADMIT Internal Medicine
PROC: 0JB90ZZ Excision of Buttock Subcutaneous Tissue and Fascia, Open Approach (ICD-10-PCS; principal; 2018-05-26)
DX: A41.9 Sepsis, unspecified organism (principal); L89.323 Pressure ulcer of left buttock, stage 3; L89.313 Pressure ulcer of right buttock, stage 3; G92 Toxic encephalopathy; J96.22 Acute and chronic respiratory failure with hypercapnia; N39.0 Urinary tract infection, site not specified; D68.59 Other primary thrombophilia; E44.0 Moderate protein-calorie malnutrition; Z68.41 Body mass index [BMI] 40.0-44.9, adult; E66.01 Morbid (severe) obesity due to excess calories; E78.00 Pure hypercholesterolemia, unspecified; K57.90 Diverticulosis of intestine, part unspecified, without perforation or abscess without bleeding; E11.40 Type 2 diabetes mellitus with diabetic neuropathy, unspecified; E66.9 Obesity, unspecified; F03.90 Unspecified dementia, unspecified severity, without behavioral disturbance, psychotic disturbance, mood disturbance, and anxiety; I48.2 Chronic atrial fibrillation; M32.9 Systemic lupus erythematosus, unspecified; I12.9 Hypertensive chronic kidney disease with stage 1 through stage 4 chronic kidney disease, or unspecified chronic kidney disease; N18.3 Chronic kidney disease, stage 3 (moderate); G47.33 Obstructive sleep apnea (adult) (pediatric); R41.0 Disorientation, unspecified; G31.9 Degenerative disease of nervous system, unspecified; J32.1 Chronic frontal sinusitis; G40.909 Epilepsy, unspecified, not intractable, without status epilepticus; Z88.0 Allergy status to penicillin; Z88.2 Allergy status to sulfonamides; Z87.891 Personal history of nicotine dependence; Z79.01 Long term (current) use of anticoagulants; Z79.4 Long term (current) use of insulin; Z79.899 Other long term (current) drug therapy

== ENCOUNTER 2018-06-10 09:47 | Emergency (ER) | payer OTHER, MEDICAID ==
[~2018-06-10] VITALS: Ht 165.1 cm; Wt 124.3 kg
[~2018-06-10 09:47] MED LIST changes: +BISACODYL SUPP10 MG RECTAL; +CARDIZEM60 MG PO; +COLACE100 MG PO; +COREG6.25 MG PO; +ELIQUIS5 MG PO; +GRAFCO SILVER1 EACH TOP; +HUMALOG100 UNIT/1 SUBQ; +KEPPRA1000 MG PO; +LISINOPRIL40 MG PO; +MILK OF MA400 MG/5 M PO; +MIRALAX17 GM PO; +MULTIVITAMINS1 EAC7 PO; +PEPCID20 MG PO; +SINGULAIR 10 MG10 M1 PO; +VIMPAT200 MG PO; +VIMPAT50 MG PO
[2018-06-10 12:15] VITALS: BP 150/64
== END 2018-06-10 12:15 | disposition home or self-care (01) ==
LOC: M.ERS 09:47
DX: R51 Headache (principal); I10 Essential (primary) hypertension; I48.91 Unspecified atrial fibrillation; M32.9 Systemic lupus erythematosus, unspecified; E11.43 Type 2 diabetes mellitus with diabetic autonomic (poly)neuropathy; E78.00 Pure hypercholesterolemia, unspecified; F03.90 Unspecified dementia, unspecified severity, without behavioral disturbance, psychotic disturbance, mood disturbance, and anxiety; E66.9 Obesity, unspecified; L40.9 Psoriasis, unspecified; Z88.0 Allergy status to penicillin; Z88.2 Allergy status to sulfonamides; Z68.42 Body mass index [BMI] 45.0-49.9, adult; Z79.4 Long term (current) use of insulin; W01.198A Fall on same level from slipping, tripping and stumbling with subsequent striking against other object, initial encounter; Y92.89 Other specified places as the place of occurrence of the external cause; Y93.89 Activity, other specified; Y99.8 Other external cause status

== ENCOUNTER → 2019-11-22 | Outpatient (CLI) | payer MEDICARE, MEDICAID | LOC: M.WC 03:36 | PROVIDERS: ATTEND Emergency Medicine Undersea and Hyperbaric Medicine | DX: E11.622 Type 2 diabetes mellitus with other skin ulcer (principal); L97.812 Non-pressure chronic ulcer of other part of right lower leg with fat layer exposed; L97.222 Non-pressure chronic ulcer of left calf with fat layer exposed; L40.9 Psoriasis, unspecified; I89.0 Lymphedema, not elsewhere classified; E11.51 Type 2 diabetes mellitus with diabetic peripheral angiopathy without gangrene; E11.40 Type 2 diabetes mellitus with diabetic neuropathy, unspecified; E66.01 Morbid (severe) obesity due to excess calories; E78.00 Pure hypercholesterolemia, unspecified; D68.51 Activated protein C resistance; I87.2 Venous insufficiency (chronic) (peripheral); I48.91 Unspecified atrial fibrillation; I10 Essential (primary) hypertension; I25.10 Atherosclerotic heart disease of native coronary artery without angina pectoris; M32.9 Systemic lupus erythematosus, unspecified; Z68.43 Body mass index [BMI] 50.0-59.9, adult; Z79.4 Long term (current) use of insulin ==

== ENCOUNTER → 2019-12-20 | Outpatient (CLI) | payer MEDICARE, MEDICAID | LOC: M.WC 05:00 | PROVIDERS: ATTEND Emergency Medicine Undersea and Hyperbaric Medicine | DX: E11.622 Type 2 diabetes mellitus with other skin ulcer (principal); L97.222 Non-pressure chronic ulcer of left calf with fat layer exposed; L97.812 Non-pressure chronic ulcer of other part of right lower leg with fat layer exposed; L30.9 Dermatitis, unspecified; I89.0 Lymphedema, not elsewhere classified; I87.2 Venous insufficiency (chronic) (peripheral); E11.51 Type 2 diabetes mellitus with diabetic peripheral angiopathy without gangrene; E11.40 Type 2 diabetes mellitus with diabetic neuropathy, unspecified; E78.00 Pure hypercholesterolemia, unspecified; E66.9 Obesity, unspecified; D68.51 Activated protein C resistance; I48.91 Unspecified atrial fibrillation; I10 Essential (primary) hypertension; M32.9 Systemic lupus erythematosus, unspecified; Z68.43 Body mass index [BMI] 50.0-59.9, adult ==

== ENCOUNTER → 2020-01-24 | Outpatient (CLI) | payer MEDICARE, MEDICAID | LOC: M.WC 01-17 10:00 | PROVIDERS: ATTEND Emergency Medicine Undersea and Hyperbaric Medicine | DX: E11.622 Type 2 diabetes mellitus with other skin ulcer (principal); L89.629 Pressure ulcer of left heel, unspecified stage; L97.222 Non-pressure chronic ulcer of left calf with fat layer exposed; L97.812 Non-pressure chronic ulcer of other part of right lower leg with fat layer exposed; L97.822 Non-pressure chronic ulcer of other part of left lower leg with fat layer exposed; L40.9 Psoriasis, unspecified; I89.0 Lymphedema, not elsewhere classified; I87.2 Venous insufficiency (chronic) (peripheral); I48.91 Unspecified atrial fibrillation; I10 Essential (primary) hypertension; I73.9 Peripheral vascular disease, unspecified; D68.51 Activated protein C resistance; E78.00 Pure hypercholesterolemia, unspecified; E66.9 Obesity, unspecified; G62.9 Polyneuropathy, unspecified; M32.9 Systemic lupus erythematosus, unspecified; Z68.43 Body mass index [BMI] 50.0-59.9, adult ==

== ENCOUNTER → 2020-02-21 | Outpatient (CLI) | payer MEDICARE, MEDICAID | LOC: M.WC 10:00 | PROVIDERS: ATTEND Emergency Medicine Undersea and Hyperbaric Medicine | DX: E11.622 Type 2 diabetes mellitus with other skin ulcer (principal); L97.222 Non-pressure chronic ulcer of left calf with fat layer exposed; L97.812 Non-pressure chronic ulcer of other part of right lower leg with fat layer exposed; L97.822 Non-pressure chronic ulcer of other part of left lower leg with fat layer exposed; E11.621 Type 2 diabetes mellitus with foot ulcer; L89.629 Pressure ulcer of left heel, unspecified stage; L97.421 Non-pressure chronic ulcer of left heel and midfoot limited to breakdown of skin; L40.9 Psoriasis, unspecified; I89.0 Lymphedema, not elsewhere classified; I87.2 Venous insufficiency (chronic) (peripheral); I48.91 Unspecified atrial fibrillation; I10 Essential (primary) hypertension; I73.9 Peripheral vascular disease, unspecified; D68.51 Activated protein C resistance; E78.00 Pure hypercholesterolemia, unspecified; E66.9 Obesity, unspecified; G62.9 Polyneuropathy, unspecified; M32.9 Systemic lupus erythematosus, unspecified; Z68.43 Body mass index [BMI] 50.0-59.9, adult ==

== ENCOUNTER → 2020-03-27 | Outpatient (CLI) | payer MEDICARE, MEDICAID | LOC: M.WC 03-20 10:00 | PROVIDERS: ATTEND Emergency Medicine Undersea and Hyperbaric Medicine | DX: E11.622 Type 2 diabetes mellitus with other skin ulcer (principal); L97.222 Non-pressure chronic ulcer of left calf with fat layer exposed; L97.812 Non-pressure chronic ulcer of other part of right lower leg with fat layer exposed; L97.822 Non-pressure chronic ulcer of other part of left lower leg with fat layer exposed; E11.621 Type 2 diabetes mellitus with foot ulcer; L89.629 Pressure ulcer of left heel, unspecified stage; L97.421 Non-pressure chronic ulcer of left heel and midfoot limited to breakdown of skin; L40.9 Psoriasis, unspecified; I89.0 Lymphedema, not elsewhere classified; I87.2 Venous insufficiency (chronic) (peripheral); I48.91 Unspecified atrial fibrillation; I10 Essential (primary) hypertension; D68.51 Activated protein C resistance; E11.51 Type 2 diabetes mellitus with diabetic peripheral angiopathy without gangrene; E11.40 Type 2 diabetes mellitus with diabetic neuropathy, unspecified; E78.00 Pure hypercholesterolemia, unspecified; E66.9 Obesity, unspecified; M32.9 Systemic lupus erythematosus, unspecified; Z68.43 Body mass index [BMI] 50.0-59.9, adult ==

== ENCOUNTER → 2020-04-24 | Outpatient (CLI) | payer MEDICARE, MEDICAID | LOC: M.WC 09:46 | PROVIDERS: ATTEND Emergency Medicine Undersea and Hyperbaric Medicine | DX: E11.622 Type 2 diabetes mellitus with other skin ulcer (principal); L97.222 Non-pressure chronic ulcer of left calf with fat layer exposed; L97.812 Non-pressure chronic ulcer of other part of right lower leg with fat layer exposed; L97.822 Non-pressure chronic ulcer of other part of left lower leg with fat layer exposed; E11.621 Type 2 diabetes mellitus with foot ulcer; L89.629 Pressure ulcer of left heel, unspecified stage; L97.421 Non-pressure chronic ulcer of left heel and midfoot limited to breakdown of skin; L40.9 Psoriasis, unspecified; E11.51 Type 2 diabetes mellitus with diabetic peripheral angiopathy without gangrene; E11.40 Type 2 diabetes mellitus with diabetic neuropathy, unspecified; E78.00 Pure hypercholesterolemia, unspecified; E66.9 Obesity, unspecified; D68.51 Activated protein C resistance; I89.0 Lymphedema, not elsewhere classified; I87.2 Venous insufficiency (chronic) (peripheral); I48.91 Unspecified atrial fibrillation; I10 Essential (primary) hypertension; M32.9 Systemic lupus erythematosus, unspecified; Z68.43 Body mass index [BMI] 50.0-59.9, adult ==

== ENCOUNTER → 2020-05-29 | Outpatient (CLI) | payer MEDICARE, MEDICAID | LOC: M.WC 10:00 | PROVIDERS: ATTEND Emergency Medicine Undersea and Hyperbaric Medicine | DX: E11.622 Type 2 diabetes mellitus with other skin ulcer (principal); L97.222 Non-pressure chronic ulcer of left calf with fat layer exposed; L97.812 Non-pressure chronic ulcer of other part of right lower leg with fat layer exposed; L97.822 Non-pressure chronic ulcer of other part of left lower leg with fat layer exposed; E11.621 Type 2 diabetes mellitus with foot ulcer; L89.629 Pressure ulcer of left heel, unspecified stage; L97.421 Non-pressure chronic ulcer of left heel and midfoot limited to breakdown of skin; L40.9 Psoriasis, unspecified; E11.51 Type 2 diabetes mellitus with diabetic peripheral angiopathy without gangrene; E11.40 Type 2 diabetes mellitus with diabetic neuropathy, unspecified; E78.00 Pure hypercholesterolemia, unspecified; E66.9 Obesity, unspecified; D68.51 Activated protein C resistance; I89.0 Lymphedema, not elsewhere classified; I87.2 Venous insufficiency (chronic) (peripheral); I48.91 Unspecified atrial fibrillation; I10 Essential (primary) hypertension; M32.9 Systemic lupus erythematosus, unspecified; Z68.43 Body mass index [BMI] 50.0-59.9, adult ==

== ENCOUNTER → 2020-06-26 | Outpatient (CLI) | payer MEDICARE, MEDICAID | LOC: M.WC 10:00 | PROVIDERS: ATTEND Emergency Medicine Undersea and Hyperbaric Medicine | DX: E11.622 Type 2 diabetes mellitus with other skin ulcer (principal); L97.222 Non-pressure chronic ulcer of left calf with fat layer exposed; L97.812 Non-pressure chronic ulcer of other part of right lower leg with fat layer exposed; L97.822 Non-pressure chronic ulcer of other part of left lower leg with fat layer exposed; E11.621 Type 2 diabetes mellitus with foot ulcer; L89.629 Pressure ulcer of left heel, unspecified stage; L97.421 Non-pressure chronic ulcer of left heel and midfoot limited to breakdown of skin; L40.9 Psoriasis, unspecified; E11.51 Type 2 diabetes mellitus with diabetic peripheral angiopathy without gangrene; E11.40 Type 2 diabetes mellitus with diabetic neuropathy, unspecified; E78.00 Pure hypercholesterolemia, unspecified; E66.9 Obesity, unspecified; D68.51 Activated protein C resistance; I89.0 Lymphedema, not elsewhere classified; I87.2 Venous insufficiency (chronic) (peripheral); I48.91 Unspecified atrial fibrillation; I10 Essential (primary) hypertension; M32.9 Systemic lupus erythematosus, unspecified; Z68.43 Body mass index [BMI] 50.0-59.9, adult ==

== ENCOUNTER → 2020-06-29 | Outpatient (CLI) | payer MEDICARE, MEDICAID ==
[~2020-06-29] VITALS: Ht 162.6 cm; Wt 142.9 kg
[~2020-06-29] MED LIST changes: +FISH OIL 1,0001 EAC9 PO; +HYDROCHLOROTHIA25 M1 PO; +HYDROCODON-ACE1 EAC7 PO; +KLOR-CON 10 ER10 MEQ PO; +LEVO-T50 MCG PO; +PREGABALIN100 MG PO; +TRESIBA100 UNIT/1 SUBQ
[2020-06-29 09:09] VITALS: BP 106/85
== END ==
LOC: M.INT 08:28
PROVIDERS: ATTEND Emergency Medicine Undersea and Hyperbaric Medicine
DX: L97.829 Non-pressure chronic ulcer of other part of left lower leg with unspecified severity (principal); L97.819 Non-pressure chronic ulcer of other part of right lower leg with unspecified severity; R22.43 Localized swelling, mass and lump, lower limb, bilateral; Z88.0 Allergy status to penicillin

== ENCOUNTER → 2020-07-24 | Outpatient (CLI) | payer MEDICARE, MEDICAID | LOC: M.WC 09:57 | PROVIDERS: ATTEND Emergency Medicine Undersea and Hyperbaric Medicine | DX: E11.622 Type 2 diabetes mellitus with other skin ulcer (principal); L97.222 Non-pressure chronic ulcer of left calf with fat layer exposed; L97.812 Non-pressure chronic ulcer of other part of right lower leg with fat layer exposed; L97.822 Non-pressure chronic ulcer of other part of left lower leg with fat layer exposed; E11.621 Type 2 diabetes mellitus with foot ulcer; L89.629 Pressure ulcer of left heel, unspecified stage; L97.421 Non-pressure chronic ulcer of left heel and midfoot limited to breakdown of skin; L40.9 Psoriasis, unspecified; E11.51 Type 2 diabetes mellitus with diabetic peripheral angiopathy without gangrene; E11.40 Type 2 diabetes mellitus with diabetic neuropathy, unspecified; E78.00 Pure hypercholesterolemia, unspecified; E66.9 Obesity, unspecified; D68.51 Activated protein C resistance; I89.0 Lymphedema, not elsewhere classified; I87.2 Venous insufficiency (chronic) (peripheral); I48.91 Unspecified atrial fibrillation; I10 Essential (primary) hypertension; M32.9 Systemic lupus erythematosus, unspecified; Z68.43 Body mass index [BMI] 50.0-59.9, adult ==

== ENCOUNTER → 2020-07-25 | Outpatient (CLI) | payer MEDICARE, MEDICAID ==
[2020-07-25 10:38] LABS: CREATININE 1.6 mg/dL (0.6-1.3)
== END ==
LOC: M.LAB 07-05 10:00 → M.CT 07-05 11:00 → M.LAB 10:08
PROVIDERS: ATTEND Radiology Diagnostic Radiology
DX: I70.0 Atherosclerosis of aorta (principal); I25.10 Atherosclerotic heart disease of native coronary artery without angina pectoris; I51.7 Cardiomegaly; I70.1 Atherosclerosis of renal artery; I70.8 Atherosclerosis of other arteries; I70.201 Unspecified atherosclerosis of native arteries of extremities, right leg; I70.202 Unspecified atherosclerosis of native arteries of extremities, left leg; M79.605 Pain in left leg; M79.604 Pain in right leg

== ENCOUNTER 2020-08-01 06:18 | Inpatient (IN) | payer MEDICARE, MEDICAID ==
[~2020-08-01] VITALS: Ht 162.6 cm; Wt 137.9 kg
[2020-08-01] VITALS (8 sets, daily range): BP systolic 95–151; BP diastolic 42–69
--- NOTE | ~2020-08-01 | EEG ---
[address] [address] EEG STUDY REPORT Name: THERESA CALDWELL Room: [address] IN M.R.#: [id number] Admission: 08/01/20 Attend Phys: David Serrato Discharge: Date of : 42 Report #: [id number] THIS REPORT FOR: cc: KRISTIN SHELDON MD, HEATHER L. MD Khosla, Parveen K. MD ~ DOC #: [id number] Cody Baker MD DATE OF SERVICE: 08/02/2020 This patient is being evaluated for altered mental status. EEG was done by placing the electrode by standard 10-20 system of electrode placement. Both referential and sequential montages were used for recording. Background activity in this patient's EEG is 7-8 Hz and 30 microvolt. Photic stimulation is unremarkable. The patient went to sleep and that is associated with bilateral slowing and vertex sharp waves. Throughout the record, no active epileptiform activity was noticed. IMPRESSION: This patient's EEG is intermixed with theta range slowing on both sides. That is a nonspecific abnormality which can occur with encephalopathy, effect of psychotropic medication, dementia, etc. Clinical correlation is recommended. MD TRU Salomon/ALETA By: 1357 [id number] Baker MD /micheal
--- NOTE | ~2020-08-01 | CON ---
[facility] [address] [place] [address] CONSULTATION Name: THERESA CALDWELL Room: [address] ADM IN M.R.#: [id number] Admission: 08/01/20 Attend Phys: David Serrato Discharge: Date of : 42 Report #: [id number] THIS REPORT FOR: cc: KRISTIN SHELDON MD, HEATHER L. MD Khosla, Parveen K. MD ~ DOC #: [id number] Cody Baker MD DATE OF CONSULTATION: 08/01/2020 HISTORY OF PRESENT ILLNESS: This 80-year-old female patient is unable to provide any history. I reviewed the patient's records. I tried to call the patient's multiple times, but the number in the chart does not work and I am not sure whether that is the correct number or not. I talked to the nurse looking after this patient. He tells me that this patient was like this, they called respiratory team and then suddenly she woke up and was able to give all the history and was even able to cooperate with [facility]. After the wound care, she became same. It looks like she came in with generalized weakness. It looks like it was noticed this morning. She was in the emergency room like 6:00 a.m. She may very well have woken up with these symptoms, but some of the records indicate that the symptoms may be going on for longer than that. REVIEW OF SYSTEMS: Positive for hypertension, diabetes, atrial fibrillation, factor V Leiden deficiency and lupus. Record says she is on anticoagulation, but in the hospital, I do not see any anticoagulation on her. Record also indicates that she has a history of neuropathy as well as dementia. This is all the history I can get what I tried to do the 14-point review of system. PAST MEDICAL HISTORY: Positive for multiple problems with the wound care in the lower extremities. FAMILY HISTORY: From the record does not appear to be showing any definite contributing factors. SOCIAL HISTORY: From the record, she does not smoke or drink any alcohol. PHYSICAL EXAMINATION: She will not do anything for me. She keeps her eyes closed. Her vitals are fine according to the nurses, but she would not open her eyes or do anything for me. Her reflexes are absent. There is no meningeal sign. She is morbidly obese. Vital Signs: Blood pressure is 42, respirations 19, pulse is 81 and temperature is 98.2. LABORATORY DATA: White count is up. Urinalysis shows more than 25 wbc's. IMPRESSION: Almost impossible to form in this patient [place] [address] CONSULTATION Name: THERESA CALDWELL Room: [address] IN M.R.#: [id number] Admission: 08/01/20 Attend Phys: David Serrato Discharge: Date of : 42 Report #: [id number] make an effort to reach the patient's . If she was taking her anticoagulation on a regular basis, then the chances of this being stroke is low, but cannot be fully excluded. If she was on anticoagulation, she is not a candidate for TPA at least and depending upon the time window she may not be a candidate at all. I am not sure whether the patient has stroke or not because she does have urinary tract infection and she has dementia, she will be predisposed for encephalopathy. Her GFR is only 10. On 07/21, it was 31. So I suspect renal also is contributing to the encephalopathy. RECOMMENDATION: 1. I ordered an MRI in this patient. 2. I ordered an EEG in this patient and I will continue to make an effort to reach the and I have asked the nurses to try to find out his number. Thank you very much for this referral. Cody Baker MD PK/FRANCY By: 1717 06Cody Baker MD /nt
[2020-08-01 06:58] LABS: ABSOLUTE BASOPHILS 0.1 thou/uL (0.0-0.2); ABSOLUTE LYMPHOCYTES 0.9 thou/uL (0.8-5.3); ABSOLUTE MONOCYTES 1.2 thou/uL (0.0-1.2); ABSOLUTE NEUTROPHILS 12.4 thou/uL (1.6-8.1); BASOPHILS 0.4 %; EOSINOPHILS 0.2 %; HEMATOCRIT 33.2 % (37.0-47.0); HEMOGLOBIN 10.2 gm/dL (12.0-15.0); LYMPHOCYTES 6.4 %; MCH 23.8 pg (26.0-34.0); MCHC 30.8 g/dL (28.0-37.0); MCV 77.2 fL (80.0-100.0); MPV 7.2 fl. (7.2-11.1); NUCLEATED RBCS 0 /100WBC; PLATELET COUNT* 223 thou/uL (150-400); RDW-CV 17.2 % (10.5-14.5); WBC 14.6 thou/uL (4.0-11.0)
[2020-08-01 07:08] LABS: CALCIUM 7.8 mg/dL (8.5-10.1); CREATININE 4.2 mg/dL (0.6-1.3); POTASSIUM 4.8 mmol/L (3.5-5.1)
[2020-08-01 07:10] LABS: APTT 36.4 Seconds (25.0-31.3); INR 1.1; PROTIME 11.9 Seconds (9.20-11.50)
[2020-08-01 07:19] LABS: ALBUMIN 2.1 g/dL (3.4-5.0); MAGNESIUM 1.7 mg/dL (1.8-2.4); TOTAL BILIRUBIN 0.5 mg/dL (<0.1-1.0); TOTAL PROTEIN 9.1 g/dL (6.4-8.2)
[2020-08-01 07:35] LABS: URINE BILIRUBIN NEGATIVE (Negative); URINE BLOOD 2+ (Negative); URINE CLARITY SL CLOUDY; URINE COLOR YELLOW; URINE GLUCOSE-RANDOM NEGATIVE (Negative); URINE KETONES NEGATIVE (Negative); URINE PROTEIN 1+ (Negative); URINE UROBILINOGEN 0.2 E.U./dl (0.2-1.0)
[2020-08-01 07:38] LABS: URINE LEUKOCYTES-REFLEX 2+ (Negative); URINE NITRITE-REFLEX POSITIVE (Negative)
[2020-08-01 07:47] LABS: CASTS None Seen /LPF (None Seen); CRYSTALS None Seen /LPF (None Seen); MUCUS 0-3 Light strn/LPF (None Seen); SQUAMOUS 0-3 Few /LPF (0-3); URINE RBC 3-10 Few /HPF (0-2); URINE WBC-REFLEX >25 Many /HPF (0-5)
--- NOTE | 2020-08-01 14:27 | EKG ---
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: AP : 1940 Requested By: Mirtha Domínguez Order Number: [id number] Sean MD: Can Haddad Measurements Intervals [place] Rate: 101 P: NC: QRS: -37 QRSD: 92 T: 34 QT: 341 QTc: 442 Interpretive Statements Atrial fibrillation Left axis deviation Low voltage, precordial leads Consider anterior infarct Compared to ECG 05/19/2018 11:46:04 Left-axis deviation persists Low QRS voltage now present Myocardial infarct finding now possible Electronically Signed On 08-01-2020 14:27:08 CDT by Can Haddad [email or web address] <ELECTRONICALLY SIGNED> By: Can Haddad MD, [facility] 08/01/20 1427 7 7 Can Haddad MD, [facility] /EPI
--- NOTE | 2020-08-01 14:41 | NUR ---
WOUND NURSE: PATIENT SEEN TODAY TO ASSESS MULTIPLE LLE AND L HEEL MIXED VENOUS-ARTERIAL WOUNDS. LEFT POSTERIOR MEASURES 8.5 X 4.0 X 0.2 CM. LEFT DISTAL LATERAL: 4.0 X 3.5 X 0.2 CM. LEFT PROXIMAL BRETT-LATERAL: 3.0 X 2.0 X 0.2 CM. LT PROXIMAL TIBIAL: 3.0 X 3.0 X 0.2 CM. LT DSTAL TIBIAL: 1.0 X 0.9 X 0.2 CM. ALL WOUNDS LISTED ABOVE WITH THIN LAYER FIRMLY ADHERENT YELLOW EXUDATE IN THE WOUND BED ALONG WITH MINIMAL PINK TISSUE. MODERATE AMOUNT OF YELLOW DRAINAGE. LLE IS REDDENED AND SLIGHTLY WARM TO TOUCH. PATIENT WITH NONPITTING EDEMA IN THIS EXTREMITY. LT HEEL PRESENTS WITH BLACKENED ESCHAR MEASURING 2.5 X 3.0 CM. PATIENT CONFUSED AND DISORIENTED THUS NONTEACHEABLE.
[2020-08-02 00:54] VITALS: BP 102/52
[2020-08-02 04:17] LABS: ABSOLUTE EOSINOPHILS 0.1 thou/uL (0.0-0.7); ABSOLUTE LYMPHOCYTES 0.9 thou/uL (0.8-5.3); ABSOLUTE NEUTROPHILS 10.7 thou/uL (1.6-8.1); BASOPHILS 0.4 %; EOSINOPHILS 0.4 %; HEMATOCRIT 29.7 % (37.0-47.0); HEMOGLOBIN 9.2 gm/dL (12.0-15.0); LYMPHOCYTES 7.2 %; MCH 24.2 pg (26.0-34.0); MONOCYTES 8.2 %; MPV 7.6 fl. (7.2-11.1); NUCLEATED RBCS 0 /100WBC; PLATELET COUNT* 180 thou/uL (150-400); POLYS 83.8 %; RDW-CV 17.5 % (10.5-14.5); WBC 12.7 thou/uL (4.0-11.0)
[2020-08-02 04:38] VITALS: BP 100/51
[2020-08-02 04:47] LABS: ALBUMIN 1.6 g/dL (3.4-5.0); CALCIUM 7.5 mg/dL (8.5-10.1); POTASSIUM 4.7 mmol/L (3.5-5.1); TOTAL BILIRUBIN 0.3 mg/dL (<0.1-1.0); TOTAL PROTEIN 7.7 g/dL (6.4-8.2)
--- NOTE | 2020-08-02 07:44 | NUR ---
Oriented x 4 but also is drowsy and when she falls asleep she starts yelling and talking and laughing and screaming. She awakens easily and answers questions appropriately. She is afib on the monitor. Vitals are stable. She has tylenol for pain and the dose was increased this am for L leg pain that has stasis ulcers x 6 and Dylon/woundcare has been working with her. Lang drsg to L leg and has on prafo boots. She is incontinent of BM. She has been 94-97% on roomair but may have sleep apnea. Phone number for significant other is disconnected. She has been turned every 2 hours. She has slept well.
[2020-08-02 08:00] VITALS: BP 90/43
--- NOTE | 2020-08-02 09:56 | NUR ---
CM ASSESSMENT: PT RESIDES AT HOME WITH HER SPOUSE AND HE ASSIST HER WITH ALL CARES. PT INFORMS THAT HER SPOUSE DOES ALL C++ PROFESSOR, COOKING, AND DRIVING. PT USES A POWER WHEELCHAIR FOR MOBILITY. PT HAS PAST HX OF HH WITH [facility]. PT HAS PAST HX OF SNF AT [facility], AND [facility]. CM WILL REMAIN AVAILABLE TO ASSIST AND FOLLOW NEEDED.
[2020-08-02 11:10] VITALS: BP 110/56
--- NOTE | 2020-08-02 15:54 | NUR ---
[facility] Bedside Assessment Note: Patient awakened to my voice and seemed to agree she had had HH before an would like it from us again. She fell asleep while i was talking to her. Attempted to call on recorded phone # [phone] Bedside Assessment Note: Patient awakened and agreed she had had HH before and would like us to provide that again. Said is able to take care of her at home. Confirmed Dr. Clements is her PCP and she saw her in May. Tried to call with # recorded on Face Sheet and confirmed with nurse at nurses station where he calls in. Number not working. Called [facility] and confirmed this is only #. Will try calling this evening. Reprted all to BREANNE Juan. Faxed face Sheet and H&P.
[2020-08-02 16:51] VITALS: BP 90/41
[2020-08-02 20:00] VITALS: BP 94/45
[2020-08-03 00:35] VITALS: BP 103/49
--- NOTE | 2020-08-03 04:13 | NUR ---
PT A&O X4. ON RA. UP INDEPENDENTLY. NO CHANGES AT THIS TIME. CALL LIGHT WITHIN REACH. WILL CONTINUE TO MONITOR.
[2020-08-03 04:30] VITALS: BP 113/54
[2020-08-03 04:31] LABS: ABSOLUTE EOSINOPHILS 0.2 thou/uL (0.0-0.7); ABSOLUTE LYMPHOCYTES 0.9 thou/uL (0.8-5.3); ABSOLUTE MONOCYTES 1.1 thou/uL (0.0-1.2); BASOPHILS 0.2 %; EOSINOPHILS 1.3 %; HEMATOCRIT 29.8 % (37.0-47.0); HEMOGLOBIN 9.1 gm/dL (12.0-15.0); LYMPHOCYTES 6.5 %; MCH 23.9 pg (26.0-34.0); MCHC 30.6 g/dL (28.0-37.0); MCV 78.2 fL (80.0-100.0); MONOCYTES 8.2 %; MPV 7.7 fl. (7.2-11.1); NUCLEATED RBCS 0 /100WBC; PLATELET COUNT* 205 thou/uL (150-400); POLYS 83.8 %; RBC 3.81 mil/uL (4.20-5.00); RDW-CV 17.5 % (10.5-14.5); WBC 13.1 thou/uL (4.0-11.0)
[2020-08-03 04:53] LABS: CALCIUM 7.7 mg/dL (8.5-10.1); CREATININE 4.2 mg/dL (0.6-1.3); POTASSIUM 4.8 mmol/L (3.5-5.1)
[2020-08-03 08:20] VITALS: BP 107/51
--- NOTE | 2020-08-03 12:31 | H ---
[place] [address] HISTORY AND PHYSICAL Name: THERESA CALDWELL Room: [address] ADM IN M.James.#: [id number] Admission: 08/01/20 Attend Phys: David Serrato Discharge: Date of : 42 Report #: [id number] THIS REPORT FOR: cc: KRISTIN SHELDON MD, HEATHER L. MD Hanon, Daniel R. DPM ~ DOC #: [id number] Thierno Capps DPM ADMIT DATE: 08/02/2020 HISTORY OF PRESENT ILLNESS: The patient is a 80-year-old female who presents to the emergency room with weakness and confusion. She has no appetite. She has been feeling weak and somewhat confused. She has chronic wounds to both lower extremities with likely arterial and venous component. She denies shortness of breath, chest pain, abdominal pain, nausea, vomiting or diarrhea. She is minimally ambulatory. MEDICAL PROBLEMS: PAST MEDICAL HISTORY: Acute renal failure, cellulitis, chronic atrial fibrillation, hyperkalemia, hyponatremia, metabolic encephalopathy, nonhealing wounds to bilateral lower extremities, sepsis, urinary tract infection, generalized weakness, hypertension, diabetes, AFib, factor V Leiden gene mutation, lupus, anticoagulation, hypercholesterolemia, stasis dermatitis, diverticulitis, neuropathy, psoriasis, obesity and dementia. ALLERGIES: TORSEMIDE, PENICILLIN, SULFA, LEVETIRACETAM. MEDICATIONS: Montelukast sodium, apixaban 5 mg p.o. b.i.d., lisinopril 40 mg p.o. daily, atorvastatin 10 mg daily, acetaminophen 325 mg q.6h., carvedilol 6.25 mg p.o. b.i.d. meals, [place] 5/325 one p.o. p.r.n., hydrochlorothiazide 25 mg 1 p.o. daily, levothyroxine sodium 1 p.o. daily, pregabalin 1 p.o. t.i.d., potassium chloride 10 ER 1 tab p.o. daily, insulin degludec 80 units subQ q.a.m. FAMILY HISTORY: Reviewed, no pertinent family history. SOCIAL HISTORY: Denies tobacco use, although has exposure to tobacco smoke as her is a heavy smoker. Denies alcohol use, denies drug use. REVIEW OF SYSTEMS: CONSTITUTIONAL: Denies fevers, chills. EYES: No visual change, or blurred vision. HENT: No trauma or headache. No congestion or rhinitis. No dysphagia or dysarthria. CARDIOVASCULAR: No chest pain or palpitations. RESPIRATORY: No shortness of breath or cough. GASTROINTESTINAL: [place] [address] HISTORY AND PHYSICAL Name: THERESA CALDWELL Room: [address] IN [facility]#: [id number] Admission: 08/01/20 Attend Phys: David Serrato Discharge: Date of : 42 Report #: [id number] GENITOURINARY: No urgency or frequency of urination. MUSCULOSKELETAL: Denies joint pain. PSYCHIATRIC: Denies anxiety or depression. ENDOCRINE: Positive diabetes. HEMATOLOGIC/LYMPHATIC: No bruising, bleeding or anemia. INTEGUMENTARY: Chronic nonhealing ulcerations to bilateral lower extremities with severe edema. NEUROLOGIC: Reports weakness and confusion. LABORATORY DATA: WBC 14. CO2 of 20, BUN 65, creatinine 4.2, glucose 118. PHYSICAL EXAMINATION: VITAL SIGNS: Temperature 97.2, pulse 91, respirations 16, blood pressure 133/62. GENERAL: Pleasant 80-year-old female who is morbidly obese with chronic venous stasis changes and ulcers to her left to bilateral legs. HEAD: Normocephalic, atraumatic. EYES: Pupils equal, round and reactive to light and accommodation. NOSE: Clear without ulceration. MOUTH: Mucous membranes moist and pink. NECK: Supple, no masses. CARDIOVASCULAR: Regular rate and rhythm. LUNGS: Equal breath sounds, no respiratory distress. ABDOMEN: Soft, nontender, nondistended. EXTREMITIES: Severe bilateral lower extremity edema with seeping wounds, necrotic ulceration to left heel. Severe edema to both legs, left is worse. Lipodermatosclerosis with moderate erythema to both legs with multiple areas of full-thickness ulcerations with underlying granular tissue and serous weepage on her bandage. A dry eschar to the left posterior heel that measures roughly 3.0 cm in diameter. Nonpalpable dorsalis pedis and posterior tibial pulses. Toenails mycotic without paronychia. SKIN: Lower extremity wounds as noted above rash under her abdominal pannus. PSYCHIATRIC: Appropriate mood and affect. NEUROLOGIC: Alert, oriented x 3, conversational. ASSESSMENT: Sepsis, metabolic encephalopathy, bilateral lower extremity cellulitis, pressure ulceration to left heel, acute kidney injury with acute tubular necrosis, urinary tract infection. PLAN: I reviewed arterial Doppler study, which shows biphasic waveforms in the left common femoral artery and then becomes monophasic distally throughout the remaining entire left lower extremity. The right extremity waveforms are triphasic in the common femoral artery and then become monophasic in the right popliteal and posterior tibial arteries. Remain on ceftriaxone per Medicine. Aerobic cultures were taken of the leg wounds by the wound care nurse[place] [address] HISTORY AND PHYSICAL Name: THERESA CALDWELL Room: [address] IN M.R.#: [id number] Admission: 08/01/20 Attend Phys: David Serrato Discharge: Date of : 42 Report #: [id number] recommend compression to her legs at present until her arterial flow is evaluated by interventional radiology. I discussed the case with ____, the wound nurse, who will topically treat the legs with Iodosorb gauze and Mikael bandages. DAILY Duffy/HARMAN/SHAHLA <ELECTRONICALLY SIGNED> By: Thierno Capps DPM 08/03/20 1231 0651 0728Thierno Capps DPM /micheal
--- NOTE | 2020-08-03 16:32 | NUR ---
PLAN OF CARE: PT REMAINS TELE STATUS. PT TO HAVE MRI DONE TODAY. PT MAY D/C OVER THE WEEKEND AND WOULD BENEFIT FROM HH. HOWEVER [facility] REP INFORMS THAT PT'S PHONE NUMBER IS A NON-WORKING NUMBER AND MUST HAVE GOOD CONTACT INFO TO ACCEPT PT AT D/C. PT'S SPOUSE HAS BEEN INFORMED OF ALL OF THE ABOVE INFO, AND IS TRYING TO RESOLVE THE ISSUE. IF PT'S PHONE ISSUE IS FIXED [facility] CAN ACCEPT THE PT AND WILL NEED HH AND D/C ORDERS FAXED. CM WILL REMAIN AVAILABLE TO ASSIST AND FOLLOW NEEDED. [facility] PHONE: [phone] FAX: [phone]
--- NOTE | 2020-08-03 20:35 | NUR ---
Pt remained A&O x4 for entire shift. Pt pleasant with staff. Pt continues to yell while sleeping. Pt notes that this is normal for her. Pt's at bedside part of the day. Discussed not being able to get in contact with via phone and he tried from room from phone and stated he would look at it when he got home to see what is wrong. Pt's states that this is his only phone to contact. Pt went to MRI this afternoon and tolerated it fair. Bed in low position, call light within reach, pt turned Q2 hours.
[2020-08-03 20:49] VITALS: BP 111/205; BP 111/25
[2020-08-04] VITALS (16 sets, daily range): BP systolic 57–230; BP diastolic 14–127
[2020-08-04 04:41] LABS: HEMATOCRIT 29.8 % (37.0-47.0); HEMOGLOBIN 9.1 gm/dL (12.0-15.0); MCH 23.9 pg (26.0-34.0); MCHC 30.6 g/dL (28.0-37.0); MCV 78.3 fL (80.0-100.0); MPV 7.7 fl. (7.2-11.1); RBC 3.81 mil/uL (4.20-5.00); RDW-CV 17.8 % (10.5-14.5); WBC 12.4 thou/uL (4.0-11.0)
[2020-08-04 05:01] LABS: CREATININE 4.2 mg/dL (0.6-1.3)
--- NOTE | 2020-08-04 06:53 | NUR ---
PATIENTS CONTACTED TO INFORM OF CODE AND PATIENT STATUS. VERBALIZES UNDERSTANDING OF PATIENT STATUS.
--- NOTE | 2020-08-04 07:51 | NUR ---
[facility] REFERRAL AT 0747 ON 08/04 [facility] REFERRAL NUMBER [phone] TOD 0739 ON 08/[address] JONAS PER [facility]-NOT A CANDIDATE FOR DONATION, CLEARED TO RELEASE THE PT
--- NOTE | 2020-08-04 08:24 | NUR ---
PT BROUGHT TO ICU BED 2 @ 0635; PT ON ARRIVAL TRACING A VENTRICULAR TACHICARDIA RATE 120'S; DOPPLER PULSE PRESENT; 2ND IV PLACED; PT VENT 100% TV 500, PEEP-5, AC-14; @ 0641 RHYTHM CHANGE WIDEN OUT COMPLEX RATE 50-60; NO PULSE PRESENT SEE CODE BLUE SHEET 0641; PULSE PRESENT @ 0651; NG PLACED ATTEMPTED CHEST X-RAY FOR TUBE PLACEMENT; NOTED THAT PTS RHYTHM WIDENED AND BP 60'S/20'S WITH LEOVPHED GTT MAXED @ 30 MCG\MIN; SEE CODE BLUE SHEET @ 0712, PULSE DETECTED @ 0723; AND SISTER CONTACTED AND IN ROUTE @ THIS TIME PT EPI AND LEVO GTT INFUSING MAX DOSES; @ 0734 PT IN PEA, SEE CODE BLUE SHEET; PRONOUNCED BT DR JONAS @ 0739; SEE CHART FOR ADDITIONAL INFORMATION;
--- NOTE | 2020-08-04 17:22 | NUR ---
I WAS ASSIGNED THIS PATIENT UPON ARRIVAL OF MY SHIFT AND THE PATIENT WAS IN A CODE. I ASSISTED WITH 2 CODES WITH THE PATIENT AND THE NIGHT NURSE. ALL CHARTING WAS DONE ON CODE BLUE WORKSHEETS.
== END 2020-08-04 07:39 | DRG 871 ==
LOC: M.ERS 06:18 → M.TBA-ER 07:38 → M.2W 07:38 → M.ICU 08-04 06:42
PROVIDERS: Personal Emergency Response Attendant; Psychiatry & Neurology Neurology; ADMIT Internal Medicine; ATTEND Internal Medicine
PROC: 5A12012 Performance of Cardiac Output, Single, Manual (ICD-10-PCS; principal; 2020-08-04)
PROC: 0BH18EZ Insertion of Endotracheal Airway into Trachea, Via Natural or Artificial Opening Endoscopic (ICD-10-PCS; 2020-08-04)
PROC: 5A1935Z Respiratory Ventilation, Less than 24 Consecutive Hours (ICD-10-PCS; 2020-08-04)
DX: A41.9 Sepsis, unspecified organism (principal); G93.41 Metabolic encephalopathy; N17.0 Acute kidney failure with tubular necrosis; L03.115 Cellulitis of right lower limb; L03.116 Cellulitis of left lower limb; N39.0 Urinary tract infection, site not specified; Z68.43 Body mass index [BMI] 50.0-59.9, adult; D68.51 Activated protein C resistance; I48.20 Chronic atrial fibrillation, unspecified; I47.2 Ventricular tachycardia; E78.5 Hyperlipidemia, unspecified; E11.40 Type 2 diabetes mellitus with diabetic neuropathy, unspecified; I87.2 Venous insufficiency (chronic) (peripheral); K57.90 Diverticulosis of intestine, part unspecified, without perforation or abscess without bleeding; E66.01 Morbid (severe) obesity due to excess calories; E11.65 Type 2 diabetes mellitus with hyperglycemia; I10 Essential (primary) hypertension; L89.629 Pressure ulcer of left heel, unspecified stage; E78.00 Pure hypercholesterolemia, unspecified; F03.90 Unspecified dementia, unspecified severity, without behavioral disturbance, psychotic disturbance, mood disturbance, and anxiety; Z20.822 Contact with and (suspected) exposure to COVID-19; Z79.01 Long term (current) use of anticoagulants; Z79.899 Other long term (current) drug therapy; Z79.4 Long term (current) use of insulin; Z88.8 Allergy status to other drugs, medicaments and biological substances; Z88.0 Allergy status to penicillin; Z88.2 Allergy status to sulfonamides